=== PATIENT | female | born 1960 | race Caucasian/White ===

== ENCOUNTER 2016-10-08 09:15 | Emergency (ER) | payer OTHER ==
[~2016-10-08] VITALS: Ht 162.6 cm; Wt 98.9 kg
[~2016-10-08 09:15] MED LIST: CHOL100010 PO; CRS/10 PO; CYM/30 PO; LORA-741 PO; MULT-506 PO
[2016-10-08 09:22] VITALS: TEMP 36.7; Ht 162.6 cm; Wt 98.9 kg
[2016-10-08] MEDS ORDERED: DULO60CA44 PO (09:56)
[2016-10-08] MEDS ORDERED: BUSP15TA70 PO (09:56)
[2016-10-08] MEDS ORDERED: CHOL1000 PO (09:56)
[2016-10-08 10:03] VITALS: O2SAT 96
--- NOTE | 2016-10-08 10:09 | DIAGNOSTIC IMAGING REPORT ---
CHEST ONE VIEW PORTABLE CLINICAL HISTORY: Chest pain, dyspnea dyspnea COMPARISON STUDY: 09/10/2005 FINDINGS: The bones soft tissues and hemidiaphragms are normal. The cardiomediastinal silhouette is normal. The lungs are clear. The pulmonary vasculature is normal. IMPRESSION: Negative chest. Electronically signed by: George Valadez M.D. 10/08/2016 10:07 AM Dictated Date/Time: 10/08/2016 10:07 AM
[2016-10-08 10:10] LABS: BASO % 0.8 %; BASO ABS # 0.06 K/uL (0-0.2); COMPLETE YES; EOS % 5.2 %; HEMATOCRIT 40.9 % (37-47); IG% 0.3 %; LYMPH % 28.8 %; LYMPH ABS # 2.09 K/uL (1.2-3.4); MEAN CELL VOLUME 87.6 fL (80-100); MEAN CORPUSCULAR HEMOGLOBIN 27.8 pg (25-34); MEAN CORPUSCULAR HGB CONC 31.8 g/dl (32-36); MEAN PLATELET VOLUME 9.6 fL (7.4-10.4); MONO % 8.7 %; NEUT % 56.2 %; PLATELET COUNT 309 K/uL (130-400); RED BLOOD COUNT 4.67 M/uL (4.2-5.4); WHITE BLOOD COUNT 7.25 K/uL (4.8-10.8)
[2016-10-08 10:12] LABS: POINT OF CARE PRO-BNP < 15 pg/ml (0-900)
[2016-10-08 10:18] LABS: PROTHROMBIN TIME (PATIENT) 10.3 SECONDS (9.0-12.0)
[2016-10-08 10:31] LABS: BUN/CREATININE RATIO 19.8 (10-20); CALCIUM 8.9 mg/dl (8.5-10.1); CREATININE 0.91 mg/dl (0.60-1.20); POTASSIUM 3.9 mmol/L (3.5-5.1)
[2016-10-08 11:30] LABS: THYROID STIMULATING HORMONE 1.11 uIu/ml (0.300-4.500)
[2016-10-08] MEDS ORDERED: OPTIRAY 320 IV PRN (12:15)
--- NOTE | 2016-10-08 12:39 | DIAGNOSTIC IMAGING REPORT ---
CHEST CTA for PULMONARY ARTERIES CT DOSE: 497.30 mGycm HISTORY: Short of breath. TECHNIQUE: Multiaxial CT images of the chest were performed following the intravenous administration of contrast to evaluate the pulmonary arteries. Maximal intensity projection images were also obtained. COMPARISON STUDY: Chest CTA 04/04/2012. FINDINGS: There is a normal caliber thoracic aorta with no evidence for dissection. There is no evidence for pulmonary embolus. No pleural effusions. No pneumothorax. The liver and spleen are unremarkable. No mediastinal or hilar lymphadenopathy. The central airways are patent. A few bibasilar linear densities consistent with subsegmental atelectasis. No focal lung consolidations to suggest pneumonia. IMPRESSION: No evidence for pulmonary embolus. Electronically signed by: Tho Horton M.D. 10/08/2016 12:37 PM Dictated Date/Time: 10/08/2016 12:31 PM
--- NOTE | 2016-10-08 13:24 | EMERGENCY ROOM VISIT NOTE ---
History First contact with patient: 09:25 Chief Complaint: CHEST PAIN Stated Complaint: TIGHTNESS IN CHEST Nursing Triage Summary: Pt presents with substernal chest pain for a couple months, "it's to the point I am winded anytime I move. I do have anxiety attacks. I called my dr and she said to come here." History of Present Illness The patient is a 56 year old female who presents to the Emergency Room via private vehicle with complaints of "tightness in the chest". The patient states that she has had chest tightness for the past few weeks, and also feels easily winded perform activities. She rates the substernal chest pain as a 3/ 10. She states that it is worse with movement. She states that when talking or walking further distances she is short of breath. She also notes edema in the lower extremities at the end of the day. She does have a history of asthma. She does not personally have any heart history or lung history. She also has a history of anxiety and depression, Review of Systems A complete 10-point Review of Systems was discussed with the patient, with pertinent positives and negatives listed in the History of Present Illness. All remaining Review of Systems questions can be considered negative unless otherwise specified. Past Medical/Surgical History Anxiety, depression, high cholesterol Family History Mother from CHF Social History Smoking Status: Former Smoker Social History: Patient lives at home with and is currently employed. Current/Historical Medications Scheduled Buspirone Hcl (Buspar), 15 MG PO DAILY Cholecalciferol (Vitamin D3), 2,000 UNIT PO DAILY Duloxetine Hcl (Cymbalta), 60 MG PO DAILY Lorazepam (Ativan), 0.5 MG PO DAILY PRN Multivitamin (Multivitamin), 1 TAB PO DAILY Rosuvastatin Calcium (Crestor), 10 MG PO DAILY Allergies Coded Allergies: Isopropyl Alcohol (Verified Allergy, Unknown, RASH - PLEASE USE IODINE PER Tomi MORRISON, 10/08/16) Penicillins (Verified Allergy, Unknown, HIVES, 10/08/16) Dichloralphenazone (Verified Adverse Reaction, Mild, GI BLEED, 10/08/16) Isometheptene (Verified Adverse Reaction, Mild, GI BLEED, 10/08/16) Sulfa Antibiotics (Verified Adverse Reaction, Mild, gi upset, 10/08/16) Aspirin (Verified Adverse Reaction, Unknown, STOMACH UPSET, 10/08/16) Ibuprofen (Verified Adverse Reaction, Unknown, VAGINAL SPOTTING/GI BLEED, 10/08/16) Physical Exam Vital Signs Date Time Temp Pulse Resp B/P Pulse Ox O2 Delivery O2 Flow Rate FiO2 10/08/16 13:50 64 18 143/72 99 10/08/16 11:45 67 16 133/70 98 Room Air 10/08/16 10:56 70 16 137/76 96 Room Air 10/08/16 10:25 75 10/08/16 10:03 96 Room Air 10/08/16 10:03 73 16 129/66 97 Room Air 10/08/16 09:22 36.7 75 18 133/79 97 Room Air Physical Exam VITAL SIGNS - Vital signs and nursing notes were reviewed. Patient is afebrile , normotensive, non-tachycardic and is saturating well on room air 97%. GENERAL -56-year-old female appearing her stated age who is in no acute distress. Communicates well with provider and answers questions appropriately. SKIN - Without rashes. No petechial rashes. HEAD - NC/AT. EYES - PERRL with EOMI bilaterally. Sclera anicteric. Palpebral conjunctiva pink and moist with no injection noted. EARS - No deformities of external structures noted on gross examination bilaterally. No pain elicited with palpation of the tragus bilaterally. External auditory canals without discharge or otorrhea. Tympanic membranes pearly cuevas without retraction or bulging. No fluid or purulent material visualized behind the TM. Handle of malleus, umbo, cone of light, pars tensa/ flaccid all easily visualized. NOSE - Midline and without cyanosis. No epistaxis or purulent drainage noted. Septum midline without deviation or septal hematoma noted. MOUTH/OROPHARYNX - Without perioral cyanosis. Buccal mucosa pink and moist and without leukoplakia. Tongue midline with equal elevation of palate bilaterally. No tonsillar hypertrophy, erythema, or exudates noted. Fair dentition noted. NECK - Neck with FROM. Supple to palpation. No lymphadenopathy noted. No nuchal rigidity. LUNGS - Chest wall symmetric without accessory muscle use, intercostals retractions, or central cyanosis. Normal vesicular breath sounds CTA B/L. No wheezes, rales, or rhonchi appreciated. CARDIAC - RRR with S1/S2. No murmur, rubs, or gallops appreciated. There is reproducible pain with palpation of the sternal region. ABDOMEN - Abdominal contour without pulsations or visible masses. BS normoactive all four quadrants. No tenderness, palpable masses, hepatosplenomegaly, or ascites noted. EXTREMITIES - No clubbing or peripheral cyanosis. No pretibial edema present. + 5/5 strength noted in UE/LE bilaterally. NEUROLOGIC - Cranial nerves II through XII grossly intact. PSYCH - . Pt is very pleasant and interacts well with examiner. Medical Decision & Procedures ER Provider Diagnostic Interpretation: CHEST ONE VIEW PORTABLE CLINICAL HISTORY: Chest pain, dyspnea dyspnea COMPARISON STUDY: 09/10/2005 FINDINGS: The bones soft tissues and hemidiaphragms are normal. The cardiomediastinal silhouette is normal. The lungs are clear. The pulmonary vasculature is normal. IMPRESSION: Negative chest. Electronically signed by: George Valadez M.D. 10/08/2016 10:07 AM Dictated Date/Time: 10/08/2016 10:07 AM CHEST CTA for PULMONARY ARTERIES CT DOSE: 497.30 mGycm HISTORY: Short of breath. TECHNIQUE: Multiaxial CT images of the chest were performed following the intravenous administration of contrast to evaluate the pulmonary arteries. Maximal intensity projection images were also obtained. COMPARISON STUDY: Chest CTA 04/04/2012. FINDINGS: There is a normal caliber thoracic aorta with no evidence for dissection. There is no evidence for pulmonary embolus. No pleural effusions. No pneumothorax. The liver and spleen are unremarkable. No mediastinal or hilar lymphadenopathy. The central airways are patent. A few bibasilar linear densities consistent with subsegmental atelectasis. No focal lung consolidations to suggest pneumonia. IMPRESSION: No evidence for pulmonary embolus. Electronically signed by: Tho Horton M.D. 10/08/2016 12:37 PM Dictated Date/Time: 10/08/2016 12:31 PM Laboratory Results 10/08/16 09:45 Red Blood Count 4.67, Mean Corpuscular Volume 87.6, Mean Corpuscular Hemoglobin 27.8, Mean Corpuscular Hemoglobin Concent 31.8, Mean Platelet Volume 9.6, Neutrophils (%) (Auto) 56.2, Lymphocytes (%) (Auto) 28.8, Monocytes (%) (Auto) 8.7, Eosinophils (%) (Auto) 5.2, Basophils (%) (Auto) 0.8, Neutrophils # (Auto) 4.07, Lymphocytes # (Auto) 2.09, Monocytes # (Auto) 0.63, Eosinophils # (Auto) 0.38, Basophils # (Auto) 0.06 10/08/16 09:45 Test 10/08/16 09:45 10/08/16 09:52 10/08/16 11:45 White Blood Count 7.25 K/uL (4.8-10.8) Red Blood Count 4.67 M/uL (4.2-5.4) Hemoglobin 13.0 g/dL (12.0-16.0) Hematocrit 40.9 % (37-47) Mean Corpuscular Volume 87.6 fL (80-100) Mean Corpuscular Hemoglobin 27.8 pg (25-34) Mean Corpuscular Hemoglobin Concent 31.8 g/dl (32-36) Platelet Count 309 K/uL (130-400) Mean Platelet Volume 9.6 fL (7.4-10.4) Neutrophils (%) (Auto) 56.2 % Lymphocytes (%) (Auto) 28.8 % Monocytes (%) (Auto) 8.7 % Eosinophils (%) (Auto) 5.2 % Basophils (%) (Auto) 0.8 % Neutrophils # (Auto) 4.07 K/uL (1.4-6.5) Lymphocytes # (Auto) 2.09 K/uL (1.2-3.4) Monocytes # (Auto) 0.63 K/uL (0.11-0.59) Eosinophils # (Auto) 0.38 K/uL (0-0.5) Basophils # (Auto) 0.06 K/uL (0-0.2) RDW Standard Deviation 41.6 fL (36.4-46.3) RDW Coefficient of Variation 13.0 % (11.5-14.5) Immature Granulocyte % (Auto) 0.3 % Immature Granulocyte # (Auto) 0.02 K/uL (0.00-0.02) Prothrombin Time 10.3 SECONDS (9.0-12.0) Prothromb Time International Ratio 1.0 (0.9-1.1) Activated Partial Thromboplast Time 25.2 SECONDS (21.0-31.0) Partial Thromboplastin Ratio 1.0 D-Dimer 650 ug/L FEU (0-500) Anion Gap 5.0 mmol/L (3-11) Est Creatinine Clear Calc Drug Dose 78.0 ml/min Estimated GFR () 81.2 Estimated GFR (Non- 70.0 BUN/Creatinine Ratio 19.8 (10-20) Calcium Level 8.9 mg/dl (8.5-10.1) Total Bilirubin 0.4 mg/dl (0.2-1) Aspartate Amino Transf (AST/SGOT) 20 U/L (15-37) Alanine Aminotransferase (ALT/SGPT) 25 U/L (12-78) Alkaline Phosphatase 106 U/L (45-117) Total Protein 6.8 gm/dl (6.4-8.2) Albumin 3.4 gm/dl (3.4-5.0) Globulin 3.4 gm/dl (2.5-4.0) Albumin/Globulin Ratio 1.0 (0.9-2) Thyroid Stimulating Hormone (TSH) 1.110 uIu/ml (0.300-4.500) OS-Zbb-B-Type Natriuretic Peptide < 15 pg/ml (0-900) Bedside Troponin I 0.000 ng/ml (0-0.045) Medical Decision Patient was seen and evaluated as above. After obtaining a thorough history and physical examination, IV access was initiated and the above workup was performed. The patient noted worsening of her symptoms yesterday at work. Patient declined pain medication. CBC unremarkable for acute process. Coagulation studies were unremarkable. D-dimer elevated at 650. CMP reveals chloride elevation of 109, glucose at 100. Other was unremarkable. Troponin negative 2. EKG reveals normal sinus rhythm. Rate of 75 bpm. TSH normal limits. Chest x-ray unremarkable. Because the elevated d-dimer, CT for PE was obtained. PE study reveals no PE, and there was mild atelectasis. At this time I do not suspect IL, or PE at this time. Patient noted that she would prefer to follow up with her family doctor, and was also evaluated by my attending. At 1303, she noted that she would like to follow up with her family doctor and return home today. Our egg caser were able to establish an appointment for her tomorrow at 1245 with her family doctor's office. My attending did also that with the patient, she became teary as she started discussing her anxiety and depression. She denied any suicidal or homicidal ideation. She appears to be stable for discharge, and I do not believe that inpatient management is warranted. She was educated upon findings of today's visit, educated upon worrisome symptoms which to return, had questions prior to discharge and was discharged home in good condition. In evaluation treatment this patient following differential diagnoses were entertained: IL, PE, costochondritis, pneumothorax, among others. Impression Primary Impression: Chest wall pain Departure Information Dispostion Home / Self-Care Condition GOOD Referrals Ashkan Rebolledo III, M.D. (PCP) Patient Instructions My [facility] Additional Instructions You were seen in the emergency department for chest pain. As we discussed at this time, it is unlikely from emergency department standpoint your expressing a heart attack or blood clot . However, it is recommended you follow-up with her family doctor, for that reason our major case detective has established an appointment for you tomorrow at 1245. Please refer to the paper your provided regarding this. If you develop any additional symptoms, please return to the emergency department. Thank you for your time.
[2016-10-08 13:50] VITALS: BP 143/72; PULSE 64; O2SAT 99
--- NOTE | 2016-10-08 16:06 | EMERGENCY ROOM VISIT NOTE ---
ED Visit Note First contact with patient: 09:25 I have personally evaluated this patient examined her and reviewed the pertinent labs and data. I have discussed the case with the physician talent acquisition assistant and agree with the plan. 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 She is very teary-eyed when I talked her about things. She has a lot of stress at home and at work. She has a history of anxiety. She denies that she has any suicidal or homicidal ideations. 2 EKGs were obtained and they did not show any ischemic changes. Her troponin is not elevated. Chest CT was unremarkable. I do think she needs further follow-up and possible further testing. She did have a stress test a couple years ago after she was having chest pain. It was negative at that time. I talked to her at length. She desires to go home rather than be admitted and I think that this is reasonable. There is definitely an anxiety component but there could also be underlying cardiac component and will needs close follow-up . I recommended she get follow-up tomorrow with her doctor to arrange further treatment and evaluation and possible further cardiac workup. She was encouraged to return if she has any new problems or concerns or worsening symptoms
[2017-03-27] MEDS ORDERED: GUAI1TAB68 PO (13:41)
[2017-03-27] MEDS ORDERED: PRD20 PO (13:41)
[2017-03-27] MEDS ORDERED: WLLXL300 PO (13:41)
== END 2016-10-08 13:50 | disposition home or self-care (01) ==
LOC: C.EDB 09:17 → C.EDA 13:50
DX: R07.89 Other chest pain (principal); R06.02 Shortness of breath; R60.9 Edema, unspecified; J45.909 Unspecified asthma, uncomplicated; F41.9 Anxiety disorder, unspecified; F32.9 Major depressive disorder, single episode, unspecified; E78.00 Pure hypercholesterolemia, unspecified; Z79.899 Other long term (current) drug therapy; Z87.891 Personal history of nicotine dependence; Z82.49 Family history of ischemic heart disease and other diseases of the circulatory system

== ENCOUNTER 2017-03-24 10:49 | Observation (INO) | payer OTHER ==
[~2017-03-24] VITALS: Ht 162.6 cm; Wt 99.2 kg
[~2017-03-24 10:49] MED LIST changes: +BUSP15TA70 PO; +CHOL1000 PO; -CHOL100010 PO; -CYM/30 PO; +DULO60CA44 PO
[2017-03-24] MEDS ORDERED: BUPR-83 PO (11:42)
[2017-03-24] MEDS ORDERED: ALBUT/IPRATROP 3MG/0.5MG NEB 3 ML VIAL INH STA (11:57)
[2017-03-24 12:09] LABS: BASO % 0.5 %; BASO ABS # 0.05 K/uL (0-0.2); COMPLETE YES; EOS % 3.1 %; HEMATOCRIT 41.3 % (37-47); IG% 0.3 %; LYMPH % 28.4 %; LYMPH ABS # 2.81 K/uL (1.2-3.4); MEAN CORPUSCULAR HEMOGLOBIN 28.2 pg (25-34); MEAN CORPUSCULAR HGB CONC 33.2 g/dl (32-36); MEAN PLATELET VOLUME 9.5 fL (7.4-10.4); MONO % 8.3 %; NEUT % 59.4 %; PLATELET COUNT 328 K/uL (130-400); RED BLOOD COUNT 4.86 M/uL (4.2-5.4); WHITE BLOOD COUNT 9.88 K/uL (4.8-10.8)
--- NOTE | 2017-03-24 12:11 | EMERGENCY ROOM VISIT NOTE ---
History Report prepared by Bernice: Tanisha Beth Under the Supervision of: Dr. Keith Wade M.D. First contact with patient: 11:59 Chief Complaint: RESPIRATORY PROBLEMS Stated Complaint: VOMITING, COUGH, BREATHING DIFFICULTY, DIZZY Nursing Triage Summary: She is having such dizzy spells that she can hardly walk on her own. Difficulty breathing. Snoring like a chainsaw. Losing her voice". History of Present Illness The patient is a 57 year old female who presents to the Emergency Room with complaints of persistent respiratory problems that began several days ago. She currently rates her discomfort as a 4/10 in severity. The patient reports a history of asthma, noting she has used her inhalers without any relief. She states that she also has a history of pneumonia. The patient's states that the patient has been experiencing dizzy spells all morning. He states that the patient has had difficulty ambulating secondary to the dizziness. The patient states that for a few days she has been experiencing chest pain and headaches. She states that she was just started on Wellbutrin two weeks ago. The patient states that she has experienced leg pain. She reports nausea and vomiting today, but denies any abdominal pain. The patient denies any history of gallbladder problems or appendicitis. She denies any recent travel or history of blood clots. The patient reports a cough and a sore throat. She denies any personal history of heart disease, but reports a family history of heart disease. The patient reports weakness as well. She denies getting headaches often. Source of History: patient, spouse/significant other () Onset: several days ago Position: other (global) Symptom Intensity: 4/10 Quality: other (respiratory problems) Timing: other (persistent) Associated Symptoms: + headache, + sorethroat, + cough, + chest pain, + nausea, + vomiting, + weakness, No abdominal pain Note: Associated Symptoms: leg pain Review of Systems See HPI for pertinent positives & negatives. A total of 10 systems reviewed and were otherwise negative. Past Medical & Surgical Medical Problems: (1) Anxiety (2) Asthma (3) Depression (4) GERD (gastroesophageal reflux disease) (5) HLD (hyperlipidemia) Family History FHx: heart disease Social History Smoking Status: Never Smoker Marital Status: Housing Status: lives with significant other Occupation Status: employed Current/Historical Medications Scheduled Atorvastatin (Lipitor), 1 TAB PO DAILY Bupropion (Wellbutrin), 100 MG PO BID Buspirone Hcl (Buspar), 15 MG PO DAILY Cholecalciferol (Vitamin D3), 2,000 UNIT PO DAILY Lorazepam (Ativan), 1 MG PO BID Multivitamin (Multivitamin), 1 TAB PO DAILY Omeprazole (Prilosec), 20 MG PO DAILY Ranitidine (Zantac), 150 MG PO BID Scheduled PRN Albuterol (Ventolin Hfa), 2 PUFF PO for SOB/Wheezing Trazodone Hcl (Trazodone), 50 MG PO HS PRN for Insomnia Allergies Coded Allergies: Isopropyl Alcohol (Verified Allergy, Unknown, RASH - PLEASE USE IODINE PER Tomi MORRISON, 03/24/17) Penicillins (Verified Allergy, Unknown, HIVES, 03/24/17) Dichloralphenazone (Verified Adverse Reaction, Mild, GI BLEED, 03/24/17) Isometheptene (Verified Adverse Reaction, Mild, GI BLEED, 03/24/17) Sulfa Antibiotics (Verified Adverse Reaction, Mild, gi upset, 03/24/17) Aspirin (Verified Adverse Reaction, Unknown, STOMACH UPSET, 03/24/17) Ibuprofen (Verified Adverse Reaction, Unknown, VAGINAL SPOTTING/GI BLEED, 03/24/17) Physical Exam Vital Signs Date Time Temp Pulse Resp B/P (MAP) Pulse Ox O2 Delivery O2 Flow Rate FiO2 03/24/17 13:55 109/70 03/24/17 12:26 75 03/24/17 12:10 99 Room Air 03/24/17 11:13 36.7 72 20 138/83 98 Room Air Physical Exam GENERAL: Patient is anxious appearing in moderate distress. HEENT: No acute trauma, normocephalic atraumatic, mucous membranes moist, no nasal congestion, no scleral icterus. NECK: No stridor, no adenopathy, no meningismus, trachea is midline. LUNGS: Dyspneic and tachypneic. HEART: Regular rate and rhythm. No murmurs, rubs, gallops appreciated. ABDOMEN: Soft, nontender, bowel sounds positive, no masses appreciated, no peritonitis. BACK: No midline tenderness, no CVA tenderness EXTREMITIES: Tenderness to palpation of bilateral legs. Normal motion all extremities, no cyanosis, no edema. NEUROLOGIC: Alert and oriented, no acute motor or sensory deficits, no focal weakness, cranial nerves grossly intact. SKIN: No rash, no jaundice, no diaphoresis. Medical Decision & Procedures ER Provider Diagnostic Interpretation: Radiology results and stated below per my review and radiologist interpretation: CHEST ONE VIEW PORTABLE CLINICAL HISTORY: COUGH dyspnea COMPARISON STUDY: 10/08/2016 FINDINGS: The bones soft tissues and hemidiaphragms are normal. The cardiomediastinal silhouette is normal. The lungs are clear. The pulmonary vasculature is normal. IMPRESSION: Negative chest. The above report was generated using voice recognition software. It may contain grammatical, syntax or spelling errors. Electronically signed by: George Valadez M.D. 03/24/2017 12:32 PM Dictated Date/Time: 03/24/2017 12:32 PM The status of this report is Signed. Draft = Not yet reviewed or approved by Radiologist. Signed = Reviewed and approved by Radiologist. HEAD WITHOUT CONTRAST (CT) CLINICAL HISTORY: 57 years-old Female with new onset headache. Acute headache with dizziness, shortness of breath and chest pain TECHNIQUE: Multiple axial CT images of the head were obtained without contrast. A dose lowering technique was utilized adhering to the principles of ALARA. COMPARISON: CT head 08/14/2007. FINDINGS: No acute intracranial hemorrhage, midline shift, mass, large territorial ischemia or abnormal extra-axial collection. The calvarium is intact. The paranasal sinuses, mastoid air cells, and middle ear cavities are clear. IMPRESSION: No acute intracranial abnormality. The above report was generated using voice recognition software. It may contain grammatical, syntax or spelling errors. Electronically signed by: Samuel Bailey M.D. 03/24/2017 1:43 PM Dictated Date/Time: 03/24/2017 1:41 PM (CHEST FOR PE) ANGIO WITH CT DOSE: 1214.06 mGy.cm HISTORY: 57 years-old Female presents with acute headache, dizziness, shortness of breath and chest pain with cough TECHNIQUE: Multiple CTA images of the chest were obtained after the intravenous administration of 87 ml Optiray 320. Coronal and sagittal MIPS were obtained from the axial data set and were submitted for review. A dose lowering technique was utilized adhering to the principles of ALARA. COMPARISON: CTA of the chest 10/08/2016 FINDINGS: CTA: There is adequate opacification of the pulmonary arteries to the level of the subsegmental branches without convincing evidence of acute pulmonary embolism. Evaluation of the pulmonary arterial tree however is somewhat limited secondary to respiratory motion. The thoracic aorta is normal in both course and caliber without aneurysm or dissection. Heart size is normal. CT CHEST: Thyroid is homogeneous. No pathologic adenopathy of the chest identified. No pneumothorax, pleural effusion or focal airspace consolidation. Minimal dependent bibasilar atelectasis. Subcentimeter calcified granuloma of the right lower lobe. No suspicious pulmonary nodules or masses identified. Central airways are patent. No acute abnormality of the imaged upper abdomen. Soft tissues are unremarkable. Bones appear intact. There are moderate degenerative changes of the right AC joint. Multilevel spondylitic changes of the spine.. IMPRESSION: No acute intrathoracic abnormality identified, specifically no acute aortic pathology or evidence of pulmonary thromboembolic disease. The above report was generated using voice recognition software. It may contain grammatical, syntax or spelling errors. Electronically signed by: Samuel Bailey M.D. 03/24/2017 1:53 PM Dictated Date/Time: 03/24/2017 1:47 PM Laboratory Results 03/24/17 11:50 Red Blood Count 4.86, Mean Corpuscular Volume 85.0, Mean Corpuscular Hemoglobin 28.2, Mean Corpuscular Hemoglobin Concent 33.2, Mean Platelet Volume 9.5, Neutrophils (%) (Auto) 59.4, Lymphocytes (%) (Auto) 28.4, Monocytes (%) (Auto) 8.3, Eosinophils (%) (Auto) 3.1, Basophils (%) (Auto) 0.5, Neutrophils # (Auto) 5.86, Lymphocytes # (Auto) 2.81, Monocytes # (Auto) 0.82, Eosinophils # (Auto) 0.31, Basophils # (Auto) 0.05 03/24/17 11:50 Test 03/24/17 11:50 03/24/17 12:13 White Blood Count 9.88 K/uL (4.8-10.8) Red Blood Count 4.86 M/uL (4.2-5.4) Hemoglobin 13.7 g/dL (12.0-16.0) Hematocrit 41.3 % (37-47) Mean Corpuscular Volume 85.0 fL (80-100) Mean Corpuscular Hemoglobin 28.2 pg (25-34) Mean Corpuscular Hemoglobin Concent 33.2 g/dl (32-36) Platelet Count 328 K/uL (130-400) Mean Platelet Volume 9.5 fL (7.4-10.4) Neutrophils (%) (Auto) 59.4 % Lymphocytes (%) (Auto) 28.4 % Monocytes (%) (Auto) 8.3 % Eosinophils (%) (Auto) 3.1 % Basophils (%) (Auto) 0.5 % Neutrophils # (Auto) 5.86 K/uL (1.4-6.5) Lymphocytes # (Auto) 2.81 K/uL (1.2-3.4) Monocytes # (Auto) 0.82 K/uL (0.11-0.59) Eosinophils # (Auto) 0.31 K/uL (0-0.5) Basophils # (Auto) 0.05 K/uL (0-0.2) RDW Standard Deviation 41.4 fL (36.4-46.3) RDW Coefficient of Variation 13.4 % (11.5-14.5) Immature Granulocyte % (Auto) 0.3 % Immature Granulocyte # (Auto) 0.03 K/uL (0.00-0.02) Prothrombin Time 9.9 SECONDS (9.0-12.0) Prothromb Time International Ratio 0.9 (0.9-1.1) Activated Partial Thromboplast Time 25.0 SECONDS (21.0-31.0) Partial Thromboplastin Ratio 1.0 Anion Gap 6.0 mmol/L (3-11) Estimated GFR () 80.6 Estimated GFR (Non- 69.5 BUN/Creatinine Ratio 14.1 (10-20) Calcium Level 9.3 mg/dl (8.5-10.1) Magnesium Level 2.2 mg/dl (1.8-2.4) Total Bilirubin 0.3 mg/dl (0.2-1) Aspartate Amino Transf (AST/SGOT) 20 U/L (15-37) Alanine Aminotransferase (ALT/SGPT) 24 U/L (12-78) Alkaline Phosphatase 127 U/L (45-117) Total Protein 7.3 gm/dl (6.4-8.2) Albumin 3.6 gm/dl (3.4-5.0) Globulin 3.7 gm/dl (2.5-4.0) Albumin/Globulin Ratio 1.0 (0.9-2) Bedside Troponin I < 0.030 ng/ml (0-0.045) Laboratory results as reviewed by me. Medications Administered Medications (Trade) Dose Ordered Sig/Anneliese Route Start Time Stop Time Status Last Admin Dose Admin Albuterol/ Ipratropium (Duoneb) 3 ml NOW STAT INH 03/24/17 11:57 03/24/17 12:01 DC 03/24/17 12:07 3 ML ECG Indication: chest pain, SOB/dyspnea Rate (beats per minute): 77 Rhythm: normal sinus Findings: no acute ischemic change, no ectopy ED Course 1157: Ordered DuoNeb 3 ml INH. 1200: The patient was evaluated in room C11B. A complete history and physical exam was performed. 1410: I reevaluated the patient and she is resting comfortably. I discussed the exam findings with her and I discussed the treatment plan. She verbalized complete understanding and agreement. She does not feel comfortable going home. She will be evaluated for further treatment. 1417: I discussed the patient's case with Angela Parr. He is going to evaluate the patient for further treatment. Medical Decision Differential: Infectious, Reactive Airway Disease, Pneumonia, Pneumothorax, COPD , CHF, ACS, Pulmonary Embolism, MSK, GI, Dissection, amongst other etiologies entertained. 57 yr old female with acute onset substernal chest pressure, shortness of breath , headache and dizziness. History of asthma thus given neb for SHOB. With multiple complaints and exam felt CTA indicated without dimer, fortunately CTA negative. CT head negative (done due to acute headache). She does not have evidence of sepsis, meningitis, nor does she have neuro deficits. She has normal EKG and negative Trop thus ACS seems unlikely but with age and risks feel she will need cardiac rule out. States allergy to aspirin and already with headache would avoid nitro, especially given improvement with breathing. BP is stable. No evidence of dissection nor CHF. Hospitalist in to evaluate further. Medication Reconcilliation Current Medication List: was personally reviewed by me Consults Time Called: 1413 Consulting Physician: Angela Parr Returned Call: [phone] I discussed the patient's case with Angela Parr. He is going to evaluate the patient for further treatment. Impression Primary Impression: Substernal chest pain Additional Impressions: Shortness of breath Dizziness Scribe Attestation The scribe's documentation has been prepared under my direction and personally reviewed by me in its entirety. I confirm that the note above accurately reflects all work, treatment, procedures, and medical decision making performed by me. Departure Information Dispostion Being Evaluated By Hospitalist Referrals Ashkan Rebolledo III, M.D. (PCP) Problem Qualifiers
[2017-03-24] MEDS ORDERED: OPTIRAY 320 IV PRN (12:15)
[2017-03-24 12:20] LABS: INR 0.9 (0.9-1.1); PROTHROMBIN TIME (PATIENT) 9.9 SECONDS (9.0-12.0)
[2017-03-24 12:28] LABS: ALT/SGPT 24 U/L (12-78); BLOOD UREA NITROGEN 13 mg/dl (7-18); BUN/CREATININE RATIO 14.1 (10-20); CALCIUM 9.3 mg/dl (8.5-10.1); CARBON DIOXIDE 28 mmol/L (21-32); CHLORIDE 109 mmol/L (98-107); CREATININE 0.91 mg/dl (0.60-1.20); GLUCOSE 85 mg/dl (70-99); MAGNESIUM 2.2 mg/dl (1.8-2.4); POTASSIUM 3.8 mmol/L (3.5-5.1); SODIUM 143 mmol/L (136-145)
[2017-03-24 12:31] LABS: ALKALINE PHOSPHATASE 127 U/L (45-117); AST/SGOT 20 U/L (15-37)
--- NOTE | 2017-03-24 12:33 | DIAGNOSTIC IMAGING REPORT ---
CHEST ONE VIEW PORTABLE CLINICAL HISTORY: COUGH dyspnea COMPARISON STUDY: 10/08/2016 FINDINGS: The bones soft tissues and hemidiaphragms are normal. The cardiomediastinal silhouette is normal. The lungs are clear. The pulmonary vasculature is normal. IMPRESSION: Negative chest. The above report was generated using voice recognition software. It may contain grammatical, syntax or spelling errors. Electronically signed by: George Valadez M.D. 03/24/2017 12:32 PM Dictated Date/Time: 03/24/2017 12:32 PM
--- NOTE | 2017-03-24 13:45 | DIAGNOSTIC IMAGING REPORT ---
HEAD WITHOUT CONTRAST (CT) CLINICAL HISTORY: 57 years-old Female with new onset headache. Acute headache with dizziness, shortness of breath and chest pain TECHNIQUE: Multiple axial CT images of the head were obtained without contrast. A dose lowering technique was utilized adhering to the principles of ALARA. COMPARISON: CT head 08/14/2007. FINDINGS: No acute intracranial hemorrhage, midline shift, mass, large territorial ischemia or abnormal extra-axial collection. The calvarium is intact. The paranasal sinuses, mastoid air cells, and middle ear cavities are clear. IMPRESSION: No acute intracranial abnormality. The above report was generated using voice recognition software. It may contain grammatical, syntax or spelling errors. Electronically signed by: Samuel Bailey M.D. 03/24/2017 1:43 PM Dictated Date/Time: 03/24/2017 1:41 PM
--- NOTE | 2017-03-24 13:55 | DIAGNOSTIC IMAGING REPORT ---
(CHEST FOR PE) ANGIO WITH CT DOSE: 1214.06 mGy.cm HISTORY: 57 years-old Female presents with acute headache, dizziness, shortness of breath and chest pain with cough TECHNIQUE: Multiple CTA images of the chest were obtained after the intravenous administration of 87 ml Optiray 320. Coronal and sagittal MIPS were obtained from the axial data set and were submitted for review. A dose lowering technique was utilized adhering to the principles of ALARA. COMPARISON: CTA of the chest 10/08/2016 FINDINGS: CTA: There is adequate opacification of the pulmonary arteries to the level of the subsegmental branches without convincing evidence of acute pulmonary embolism. Evaluation of the pulmonary arterial tree however is somewhat limited secondary to respiratory motion. The thoracic aorta is normal in both course and caliber without aneurysm or dissection. Heart size is normal. CT CHEST: Thyroid is homogeneous. No pathologic adenopathy of the chest identified. No pneumothorax, pleural effusion or focal airspace consolidation. Minimal dependent bibasilar atelectasis. Subcentimeter calcified granuloma of the right lower lobe. No suspicious pulmonary nodules or masses identified. Central airways are patent. No acute abnormality of the imaged upper abdomen. Soft tissues are unremarkable. Bones appear intact. There are moderate degenerative changes of the right AC joint. Multilevel spondylitic changes of the spine.. IMPRESSION: No acute intrathoracic abnormality identified, specifically no acute aortic pathology or evidence of pulmonary thromboembolic disease. The above report was generated using voice recognition software. It may contain grammatical, syntax or spelling errors. Electronically signed by: Samuel Bailey M.D. 03/24/2017 1:53 PM Dictated Date/Time: 03/24/2017 1:47 PM
[2017-03-24] MEDS ORDERED: ONDANSETRON INJ 2 MG/ML 2 ML VIAL IV PRN (15:15)
[2017-03-24] MEDS ORDERED: NITROGLYCERIN 0.4 MG SL PER TAB CHARGE SL PRN (15:15)
[2017-03-24] MEDS ORDERED: PATIENT'S HEIGHT AND/OR WEIGHT NEEDED SCH (15:30)
--- NOTE | 2017-03-24 15:44 | History and Physical ---
History & Physical Date & Time of Service: Mar 24, 2017 at 15:32 Chief Complaint: Vomiting, Cough, Breathing Difficulty, Dizzy Primary Care Physician: Ashkan Rebolledo III, M.D. History of Present Illness Source: patient, spouse, clinic records This is a 57yo F with a PMH of asthma, anxiety, depression, GERD who presents with worsening SOB over the past week. Patient has a history of asthma that is controlled with her albuterol inhaler PRN. However, for the past week she has become dyspneic when talking as well as with any type of movement despite use of her inhaler. Associated symptoms include central chest tightness, a dry cough , chills and a dull frontal headache. Started to lose her voice yesterday. + sick contacts (son who lives at home). Also endorses worsening acid reflux over the past few days as well as nausea and an episode of dry heaving earlier today. Has been working despite not feeling well until today, when she felt lightheaded and "about to pass out". Denies any syncopal events. Called to bring her to ER for further evaluation. Patient denies a history of heart disease but has experienced this chest tightness before during times of elevated anxiety. Had a stress echo performed last year which was negative. States that anxiety and depression have been worse over the past few months. Has been stressed with her son's chronic illness and repetitive need for hospitalization. Also has been adjusting to a new work schedule. Complains of decreased appetite, insomnia, anhedonia and suicidal ideation with a plan (overdose on medication at home). Denies any previous suicidal attempts. PCP has recently stopped Cymbalta and started Wellbutrin 2 weeks ago. Encouraged her to follow-up with a psychiatrist and therapist for further medication management but patient has not yet set up care. Past Medical/Surgical History Medical Problems: (1) Anxiety Status: Chronic (2) Asthma Status: Chronic (3) Depression Status: Chronic (4) GERD (gastroesophageal reflux disease) Status: Chronic (5) HLD (hyperlipidemia) Status: Chronic Family History FHx: heart disease Social History Smoking Status: Never Smoker Marital Status: Housing status: lives with family Occupational Status: employed Immunizations History of Influenza Vaccine: No History of Tetanus Vaccine?: Yes History of Pneumococcal: No History of Hepatitis B Vaccine: No Multi-Drug Resistant Organisms History of MDRO: No Allergies Coded Allergies: Isopropyl Alcohol (Verified Allergy, Unknown, RASH - PLEASE USE IODINE PER Tomi MORRISON, 03/24/17) Penicillins (Verified Allergy, Unknown, HIVES, 03/24/17) Dichloralphenazone (Verified Adverse Reaction, Mild, GI BLEED, 03/24/17) Isometheptene (Verified Adverse Reaction, Mild, GI BLEED, 03/24/17) Sulfa Antibiotics (Verified Adverse Reaction, Mild, gi upset, 03/24/17) Aspirin (Verified Adverse Reaction, Unknown, STOMACH UPSET, 03/24/17) Ibuprofen (Verified Adverse Reaction, Unknown, VAGINAL SPOTTING/GI BLEED, 03/24/17) Home Medications Scheduled Atorvastatin (Lipitor), 1 TAB PO DAILY Bupropion (Wellbutrin), 100 MG PO BID Buspirone Hcl (Buspar), 15 MG PO DAILY Cholecalciferol (Vitamin D3), 2,000 UNIT PO DAILY Lorazepam (Ativan), 1 MG PO BID Multivitamin (Multivitamin), 1 TAB PO DAILY Omeprazole (Prilosec), 20 MG PO DAILY Ranitidine (Zantac), 150 MG PO BID Scheduled PRN Albuterol (Ventolin Hfa), 2 PUFF PO for SOB/Wheezing Trazodone Hcl (Trazodone), 50 MG PO HS PRN for Insomnia Review of Systems Ten systems reviewed and negative except as noted in the HPI. Physical Exam Vital Signs Date Time Temp Pulse Resp B/P (MAP) Pulse Ox O2 Delivery O2 Flow Rate FiO2 03/24/17 13:55 109/70 03/24/17 12:26 75 03/24/17 12:10 99 Room Air 03/24/17 11:13 36.7 72 20 138/83 98 Room Air General Appearance: + mild distress Head: normocephalic, atraumatic, + pertinent finding (No TTP of sinuses ) Eyes: normal inspection, PERRL, sclerae normal (Conjunctiva normal ) ENT: normal ENT inspection, hearing grossly normal, pharynx normal, + muffled/ hoarse voice (Hoarse voice, whispered speech) Neck: supple, thyroid normal, trachea midline Respiratory/Chest: chest non-tender, no respiratory distress, no accessory muscle use, + wheezing (expiratory wheezing) Cardiovascular: regular rate, rhythm, no murmur, normal peripheral pulses Abdomen/GI: normal bowel sounds, non tender, soft, no organomegaly Extremities/Musculoskelatal: normal inspection, no calf tenderness, no pedal edema, non-tender Neurologic/Psych: no motor/sensory deficits, alert, oriented x 3, + depressed affect (Crying intermittently during interview ) Skin: normal color, warm/dry, no rash Diagnostics Laboratory Results Results Past 24 Hours Test 03/24/17 11:50 03/24/17 12:13 Range/Units White Blood Count 9.88 4.8-10.8 K/uL Red Blood Count 4.86 4.2-5.4 M/uL Hemoglobin 13.7 12.0-16.0 g/dL Hematocrit 41.3 37-47 % Mean Corpuscular Volume 85.0 80-100 fL Mean Corpuscular Hemoglobin 28.2 25-34 pg Mean Corpuscular Hemoglobin Concent 33.2 32-36 g/dl Platelet Count 328 130-400 K/uL Mean Platelet Volume 9.5 7.4-10.4 fL Neutrophils (%) (Auto) 59.4 % Lymphocytes (%) (Auto) 28.4 % Monocytes (%) (Auto) 8.3 % Eosinophils (%) (Auto) 3.1 % Basophils (%) (Auto) 0.5 % Neutrophils # (Auto) 5.86 1.4-6.5 K/uL Lymphocytes # (Auto) 2.81 1.2-3.4 K/uL Monocytes # (Auto) 0.82 0.11-0.59 K/uL Eosinophils # (Auto) 0.31 0-0.5 K/uL Basophils # (Auto) 0.05 0-0.2 K/uL RDW Standard Deviation 41.4 36.4-46.3 fL RDW Coefficient of Variation 13.4 11.5-14.5 % Immature Granulocyte % (Auto) 0.3 % Immature Granulocyte # (Auto) 0.03 0.00-0.02 K/uL Prothrombin Time 9.9 9.0-12.0 SECONDS Prothromb Time International Ratio 0.9 0.9-1.1 Activated Partial Thromboplast Time 25.0 21.0-31.0 SECONDS Partial Thromboplastin Ratio 1.0 Sodium Level 143 136-145 mmol/L Potassium Level 3.8 3.5-5.1 mmol/L Chloride Level 109 98-107 mmol/L Carbon Dioxide Level 28 21-32 mmol/L Anion Gap 6.0 3-11 mmol/L Blood Urea Nitrogen 13 7-18 mg/dl Creatinine 0.91 0.60-1.20 mg/dl Estimated GFR () 80.6 Estimated GFR (Non- 69.5 BUN/Creatinine Ratio 14.1 10-20 Random Glucose 85 70-99 mg/dl Calcium Level 9.3 8.5-10.1 mg/dl Magnesium Level 2.2 1.8-2.4 mg/dl Total Bilirubin 0.3 0.2-1 mg/dl Aspartate Amino Transf (AST/SGOT) 20 15-37 U/L Alanine Aminotransferase (ALT/SGPT) 24 12-78 U/L Alkaline Phosphatase 127 45-117 U/L Total Protein 7.3 6.4-8.2 gm/dl Albumin 3.6 3.4-5.0 gm/dl Globulin 3.7 2.5-4.0 gm/dl Albumin/Globulin Ratio 1.0 0.9-2 Bedside Troponin I < 0.030 0-0.045 ng/ml Diagnostic Radiology Chest/thorax CTA: IMPRESSION: No acute intrathoracic abnormality identified, specifically no acute aortic pathology or evidence of pulmonary thromboembolic disease. Head CT: IMPRESSION: No acute intracranial abnormality. CXR normal Normal EKG, No change from prior EKG Impression Assessment and Plan This is a 57yo F with a PMH of asthma, anxiety, depression, GERD who presents with worsening SOB over the past week. CP rule out: -R/o ACS; risk factors include HLD, + family history -Likely pleuritic pain 2/2 asthma as well as an anxiety component -Initial troponin negative. Will cycle enzymes for completeness -H/o stress echo in 2016 negative for inducible ischemia -EKG- NSR, CXR-no acute process, CTA -no PE -Repeat EKG in am -Will consider a cardiac consult, echo if CP continues Asthma exacerbation: -Has been taking inhaler without relief -Likely precipitated by viral illness -Flu PCR pending -Afebrile, no leukocytosis -Duonebs Q4h -Prednisone 40mg PO daily Depression: -Insomnia, decreased appetite, anhedonia -Endorses SI, plan to overdose on home medications -Denies a previous suicidal attempt -Recently switched from Cymbalta to Wellbutrin by PCP -Psych consulted for further recommendations Anxiety: -Increased lately -Continue Buspar, ativan PRN -Psych consult pending Lightheadedness: -Worse with positional change -CT head without acute abnormalities -Likely vasovagal, anxiety induced -Encouraged PO intake of fluids -Normal EKG. Repeat EKG in AM -Orthostatic vitals pending GERD: -Continue omeprazole, ranitidine DVT Ppx: Lovenox Code status: FULL PCP: Kesha Dispo: Plan to return home once medically stable Patient seen in collaboration with Dr. Lujan. Agree with above H and p. Briefly 57f presents with sob and cough for few days. Also lost voice few days ago. Debies nocturnal cogh/. Laso having chest tightness. Says had chills but denies fevers. No nausea or abdominal pain. No sweeling of the legs.Currentlty resting comfortably and hemodynamically stable. p/e Ge not in distress Cvs s1 and s2 heard no murmurs Rs cta b/l mild b/l wheezing no crackles Abd benign account underwriter non focAL Ext No erythema A/P Asthma ex nebs atc and prn po prednisone monitor Anxiety/depression/suicidal ideation continue home meds psychiatry consult Chest tightness mostly from asthma and anxiety follow serial ce and repeat echo GERd continue home meds Level of Care Telemetry Resuscitation Status FULL RESUSCITATION VTE Prophylaxis VTE Risk Assessment Done? Y/N: Yes Risk Level: Moderate Given or contraindicated: Enoxaparin (Lovenox)SQ
[2017-03-24] MEDS ORDERED: OMEP20CA9 PO (15:50)
[2017-03-24] MEDS ORDERED: TRAZ50TA35 PO (15:50)
[2017-03-24] MEDS ORDERED: PRVHFAIN PO (15:50)
[2017-03-24] MEDS ORDERED: ATOR-24 PO (15:50)
[2017-03-24] MEDS ORDERED: ATV/1 PO (15:50)
[2017-03-24] MEDS ORDERED: ZNTT/150 PO (15:50)
[2017-03-24] MEDS: ALBUT/IPRATROP 3MG/0.5MG NEB 3 ML VIAL INH SCH ×2 (16:00→18:55)
[2017-03-24 16:02] VITALS: Ht 162.6 cm; Wt 99.2 kg
[2017-03-24] MEDS ORDERED: TRAZODONE HCL 50 MG TAB PO PRN (16:15)
[2017-03-24] MEDS ORDERED: ALBUTEROL HFA 8 GM INHALER INH PRN (16:15)
[2017-03-24] MEDS ORDERED: INFLUENZA VACCINE HIGH DOSE 65+ 0.5 ML SYR IM. ONE (16:30)
[2017-03-24] MEDS ORDERED: PNEUMOCOCCAL POLYSACCHARIDES 25 MCG/0.5 ML VIAL/SYR IM. ONE (16:30)
[2017-03-24] MEDS ORDERED: IV FLUIDS COMPLETED PRN ×3 (16:30)
[2017-03-24] MEDS ORDERED: INFLUENZA ADMINISTRATION CHARGE ONE (16:30)
[2017-03-24] MEDS ORDERED: PNEUMOCOCCAL ADMINISTRATION CHARGE ONE (16:30)
[2017-03-24 17:00] VITALS: O2SAT 98
[2017-03-24 17:08] VITALS: BP 133/62; PULSE 80; TEMP 36.7; O2SAT 94
[2017-03-24 18:57] VITALS: PULSE 74; O2SAT 97
[2017-03-24] MEDS: ENOXAPARIN 40 MG/0.4 ML SYR SC SCH (19:35)
[2017-03-24 19:51] VITALS: BP 123/65; PULSE 82; TEMP 37; O2SAT 96
[2017-03-24 20:00] VITALS: O2SAT 98
[2017-03-24] MEDS: LORAZEPAM 1 MG TAB PO SCH (20:36)
[2017-03-24] MEDS: BuPROPion SR 100 MG TABCR PO SCH (20:37)
[2017-03-24] MEDS: RANITIDINE HCL 150 MG TAB PO SCH (20:37)
[2017-03-24 21:33] LABS: INFLUENZA A PCR Neg for Influ A (NEG); INFLUENZA B PCR Neg for Influ B (NEG)
[2017-03-25] VITALS (10 sets, daily range): BP systolic 104–133; BP diastolic 57–82; PULSE 74–110; TEMP 36.7–36.8; O2SAT 92–97
[2017-03-25 05:46] LABS: HEMATOCRIT 42.3 % (37-47); MEAN CELL VOLUME 85.3 fL (80-100); MEAN CORPUSCULAR HEMOGLOBIN 28.2 pg (25-34); MEAN CORPUSCULAR HGB CONC 33.1 g/dl (32-36); MEAN PLATELET VOLUME 9.5 fL (7.4-10.4); PLATELET COUNT 312 K/uL (130-400); RED BLOOD COUNT 4.96 M/uL (4.2-5.4); WHITE BLOOD COUNT 7.57 K/uL (4.8-10.8)
[2017-03-25 05:55] LABS: PROTHROMBIN TIME (PATIENT) 10.4 SECONDS (9.0-12.0)
[2017-03-25 06:14] LABS: BUN/CREATININE RATIO 12.3 (10-20); CALCIUM 9.1 mg/dl (8.5-10.1); CREATININE 1.01 mg/dl (0.60-1.20); POTASSIUM 4.4 mmol/L (3.5-5.1)
[2017-03-25] MEDS: ALBUT/IPRATROP 3MG/0.5MG NEB 3 ML VIAL INH SCH ×3 (06:56→15:10)
[2017-03-25] MEDS: BuPROPion SR 100 MG TABCR PO SCH (08:31)
[2017-03-25] MEDS: CHOLECALCIFEROL 1000 INTER.UNIT TAB PO SCH (08:32)
[2017-03-25] MEDS: PANTOprazole SOD 40 MG TAB PO SCH (08:32)
[2017-03-25] MEDS: RANITIDINE HCL 150 MG TAB PO SCH ×2 (08:32→20:26)
[2017-03-25] MEDS: BusPIRone 15 MG TAB PO SCH (08:33)
[2017-03-25] MEDS: ATORVASTATIN 20 MG TAB PO SCH (08:33)
[2017-03-25] MEDS: LORAZEPAM 1 MG TAB PO SCH ×2 (08:35→20:26)
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
[2017-03-25] MEDS: ENOXAPARIN 40 MG/0.4 ML SYR SC SCH (17:17)
--- NOTE | 2017-03-25 17:31 | Progress Note ---
Medicine Progress Note Date & Time of Visit: Mar 25, 2017 at 13:14. Subjective Pt was seen and examined Lying in bed with no distress Pt said that she continues to have suicidal thought Pt said that she has been having a dry cough Continue to have SOB with exertion denies any palpitation, dizziness, hallucination Objective Last 8 Hrs Date Time Temp Pulse Resp B/P (MAP) Pulse Ox O2 Delivery O2 Flow Rate FiO2 03/25/17 16:00 Room Air 03/25/17 15:13 88 16 94 Room Air 03/25/17 15:00 36.7 86 18 123/80 (94) 95 Room Air 03/25/17 12:00 Room Air 03/25/17 11:42 36.8 94 18 133/77 (95) 92 Room Air 03/25/17 11:31 94 16 94 Room Air Physical Exam: General- No acute distress Head- atraumatic Eyes- PERRL, EOMI ENT- oropharynx clear Neck- supple, no JVD Lungs- No wheezing Heart- regular rhythm Abdomen- normal bowel sounds, soft Extremities- no calf tenderness Neuro- alert, oriented x 3; PERRL, EOMI; no facial palsy Skin- warm & dry Laboratory Results: Last 24 Hours Test 03/24/17 18:22 03/24/17 20:20 03/25/17 00:27 03/25/17 05:18 Troponin I < 0.015 ng/ml < 0.015 ng/ml Influenza Type A (RT-PCR) Neg for Influ A Influenza Type B (RT-PCR) Neg for Influ B White Blood Count 7.57 K/uL Red Blood Count 4.96 M/uL Hemoglobin 14.0 g/dL Hematocrit 42.3 % Mean Corpuscular Volume 85.3 fL Mean Corpuscular Hemoglobin 28.2 pg Mean Corpuscular Hemoglobin Concent 33.1 g/dl RDW Standard Deviation 41.3 fL RDW Coefficient of Variation 13.3 % Platelet Count 312 K/uL Mean Platelet Volume 9.5 fL Prothrombin Time 10.4 SECONDS Prothromb Time International Ratio 1.0 Sodium Level 142 mmol/L Potassium Level 4.4 mmol/L Chloride Level 108 mmol/L Carbon Dioxide Level 26 mmol/L Anion Gap 8.0 mmol/L Blood Urea Nitrogen 12 mg/dl Creatinine 1.01 mg/dl Est Creatinine Clear Calc Drug Dose 69.4 ml/min Estimated GFR () 71.1 Estimated GFR (Non- 61.3 BUN/Creatinine Ratio 12.3 Random Glucose 152 mg/dl Calcium Level 9.1 mg/dl Assessment & Plan Pressure Like chest discomfort Need to R/o ACS; risk factors include HLD, + family history Mostly Atypical Possible related to asthma vs anxiety (stress) All 3 sets troponin negative EKG showed no ischemic changes CTA Chest negative for PE Will get a an Echo to r/o any stress induce cardiomyopathy Cardiology consult if symptoms continue Asthma exacerbation: Likely precipitated by viral illness Flu PCR negative Afebrile, no leukocytosis Prednisone 40mg PO daily Continue neb treatment Depression/Anxiety having suicide ideation Psych on board Recommended to increase wellbutrin to Wellbutrin XL 300mg Pt cannot sign AMA 1 to 1 observation continue buspar and ativan prn Will need inpatient mental health treatment when medically cleared Dizziness Worse with positional change CT head negative for any acute abnormalities Fall precaution Stable GERD: Continue omeprazole, ranitidine DVT Ppx: Lovenox Code status: FULL CODE Disposition Will transfer to mental health unit once medically stable Consultants: Psych Current Inpatient Medications: Current Inpatient Medications Medications (Trade) Dose Ordered Sig/Anneliese Route Start Time Stop Time Status Last Admin Dose Admin Ioversol (Optiray 320) 125 ml UD PRN IV 03/24/17 12:15 03/28/17 12:14 Enoxaparin Sodium (Lovenox Inj) 40 mg Q24H SC 03/24/17 18:00 04/23/17 17:59 03/24/17 19:35 40 MG Ondansetron HCl (Zofran Inj) 4 mg Q6H PRN IV 03/24/17 15:15 04/23/17 15:14 Nitroglycerin (Nitrostat Tab) 0.4 mg UD PRN SL 03/24/17 15:15 04/23/17 15:14 Prednisone (PredniSONE TAB) 40 mg TODAY PO 03/24/17 18:00 04/23/17 17:59 03/24/17 19:35 40 MG Albuterol (Ventolin Hfa Inhaler) 2 puffs Q4H PRN INH 03/24/17 16:15 04/23/17 16:14 Atorvastatin Calcium (Lipitor Tab) 40 mg DAILY PO 03/25/17 09:00 04/24/17 08:59 03/25/17 08:33 40 MG Buspirone HCl (BusPAR TAB) 15 mg DAILY PO 03/25/17 09:00 04/24/17 08:59 03/25/17 08:33 15 MG Cholecalciferol (Vitamin D Tab) 2,000 inter.unit DAILY PO 03/25/17 09:00 04/24/17 08:59 03/25/17 08:32 2,000 INTER.UNIT Lorazepam (Ativan Tab) 1 mg BID PO 03/24/17 21:00 04/23/17 20:59 03/25/17 08:35 1 MG Ranitidine HCl (zANTac TAB) 150 mg BID PO 03/24/17 21:00 04/23/17 20:59 03/25/17 08:32 150 MG Trazodone HCl (Desyrel Tab) 50 mg HS PRN PO 03/24/17 16:15 04/23/17 16:14 Pantoprazole Sodium (Protonix Tab) 40 mg DAILY PO 03/25/17 09:00 04/24/17 08:59 03/25/17 08:32 40 MG Miscellaneous (Iv Fluids Completed) 1 ea PRN PRN N/A 03/24/17 16:30 03/24/18 16:29 Miscellaneous (Iv Fluids Completed) 1 ea PRN PRN N/A 03/24/17 16:30 03/24/18 16:29 Miscellaneous (Iv Fluids Completed) 1 ea PRN PRN N/A 03/24/17 16:30 03/24/18 16:29 Bupropion HCl (Wellbutrin-Xl Tab) 300 mg QAM PO 03/26/17 09:00 04/25/17 08:59
[2017-03-26 03:36] VITALS: BP 111/79; PULSE 102; TEMP 36.4; O2SAT 96
[2017-03-26] MEDS: LORAZEPAM 1 MG TAB PO SCH ×2 (07:52→20:48)
[2017-03-26] MEDS: RANITIDINE HCL 150 MG TAB PO SCH ×2 (07:52→20:48)
[2017-03-26] MEDS: ATORVASTATIN 20 MG TAB PO SCH (07:53)
[2017-03-26] MEDS: BuPROPion XL 300 MG TABCR PO SCH (07:53)
[2017-03-26] MEDS: BusPIRone 15 MG TAB PO SCH (07:53)
[2017-03-26] MEDS: CHOLECALCIFEROL 1000 INTER.UNIT TAB PO SCH (07:53)
[2017-03-26] MEDS: PANTOprazole SOD 40 MG TAB PO SCH (07:53)
[2017-03-26 11:24] VITALS: BP 136/58; PULSE 108; TEMP 36.7; O2SAT 96
[2017-03-26 15:18] VITALS: BP 111/70; PULSE 92; TEMP 36.9; O2SAT 97
--- NOTE | 2017-03-26 16:20 | ECHOCARDIOGRAM REPORT ---
*NOTICE TO RECEIVING [employer] This information is strictly Confidential and protected under [place] law. [place] law prohibits you from making any further disclosure of this information unless further disclosure is expressly permitted by the written consent of the person to whom it pertains or is authorized by law. A general authorization for the release of medical or other information is not sufficient for this purpose. Hospital accepts no responsibility if the information is made available to any other person, INCLUDING THE PATIENT. Interpretation Summary * Name: LAURA RAY Study Date: 03/25/2017 03:38 PM BP: 133/77 mmHg * Patient Location: [facility]\S\N279\S\1 HR: 94 * : 1960 (M/d/yyyy) Gender: Female Height: 64 in * Age: 57 yrs Ethnicity: CA Weight: 217 lb * Ordering Physician: Phoenix Mitchell * Referring Physician: Self, Referred * Performed By: Clair Yousif RDCS * * Reason For Study: Atrial Fibrillation * BSA: 2.0 m2 * The study was technically adequate. * -- Conclusions -- * Sinus rhythm was present during the echocardiogram study. * The left ventricular wall motion is normal. * Left ventricular systolic function is normal. * The LV Ejection Fraction = 60-65%. * Grade I diastolic dysfunction, (abnormal relaxation pattern). * Doppler findings do not suggest pulmonary hypertension. Procedure Details * A complete two-dimensional transthoracic echocardiogram was performed (2D, M-mode, Doppler and color flow Doppler). Left Ventricle * The left ventricle is normal in size. * There is normal left ventricular wall thickness. * Left ventricular systolic function is normal. * Ejection Fraction = 60-65%. * The left ventricular wall motion is normal. Right Ventricle * The right ventricle is normal size. * The right ventricular systolic function is normal as assessed by tricuspid annular plane systolic excursion (TAPSE) (normal >1.5 cm). Atria * The left atrial size is normal. * Right atrial size is normal. * There is no evidence of atrial septal defect, but resolution does not allow assessment for a patent foramen ovale. Mitral Valve * The mitral valve is normal. * There is no mitral valve stenosis. * Significant mitral regurgitation is absent. Tricuspid Valve * The tricuspid valve is normal. * There is no tricuspid stenosis. * Significant tricuspid regurgitation is absent. * Doppler findings do not suggest pulmonary hypertension. Aortic Valve * The aortic valve is trileaflet. * Aortic stenosis is absent. * There is no significant aortic regurgitation. Pulmonic Valve * The pulmonary valve is not well seen, but the Doppler examination is normal without significant regurgitation or stenosis. Great Vessels * The aortic root and proximal ascending aorta are normal sized. Pericardium/Pleural * There is no pericardial effusion. Great Vessels * Normal inferior vena cava diameter and respiratory variation suggests normal central venous pressure. * Normal inferior vena cava size and collapsability with sniff indicates a normal right atrial pressure of 3 mmHg Left Ventricular Diastolic Function * Grade I diastolic dysfunction, (abnormal relaxation pattern). MMode 2D Measurements and Calculations IVSd 0.96 cm IVSs 1.3 cm LVIDd 4.4 cm LVIDs 2.7 cm LVPWd 1.1 cm LVPWs 1.6 cm IVS/LVPW 0.90 FS 38.4 % EDV(Teich) 87.8 ml ESV(Teich) 27.3 ml EF(Teich) 69.0 % EDV(cubed) 85.3 ml ESV(cubed) 19.9 ml EF(cubed) 76.7 % % IVS thick 32.6 % % LVPW thick 48.6 % LV mass(C)d 150.1 grams LV mass(C)dI 74.1 grams/m\S\2 LV mass(C)s 127.0 grams LV mass(C)sI 62.7 grams/m\S\2 SV(Teich) 60.5 ml SI(Teich) 29.9 ml/m\S\2 SV(cubed) 65.4 ml SI(cubed) 32.3 ml/m\S\2 Ao root diam 2.7 cm Ao root area 5.8 cm\S\2 ACS 1.8 cm LA dimension 3.2 cm LA/Ao 1.2 LVAd ap4 22.8 cm\S\2 LVLd ap4 6.8 cm EDV(MOD-sp4) 64.5 ml EDV(sp4-el) 65.0 ml LVAs ap4 11.9 cm\S\2 LVLs ap4 5.5 cm ESV(MOD-sp4) 26.5 ml ESV(sp4-el) 21.6 ml EF(MOD-sp4) 58.9 % EF(sp4-el) 66.8 % LVAd ap2 19.6 cm\S\2 LVLd ap2 7.5 cm EDV(MOD-sp2) 46.8 ml EDV(sp2-el) 43.2 ml LVAs ap2 8.7 cm\S\2 LVLs ap2 5.3 cm ESV(MOD-sp2) 13.2 ml ESV(sp2-el) 12.1 ml EF(MOD-sp2) 71.7 % EF(sp2-el) 72.0 % LVLd %diff 10.0 % EDV(MOD-bp) 56.8 ml LVLs %diff -3.77 % ESV(MOD-bp) 18.9 ml EF(MOD-bp) 66.7 % SV(MOD-sp4) 38.0 ml SI(MOD-sp4) 18.8 ml/m\S\2 SV(MOD-sp2) 33.6 ml SI(MOD-sp2) 16.6 ml/m\S\2 SV(MOD-bp) 37.9 ml SI(MOD-bp) 18.7 ml/m\S\2 SV(sp4-el) 43.4 ml SI(sp4-el) 21.4 ml/m\S\2 SV(sp2-el) 31.1 ml SI(sp2-el) 15.3 ml/m\S\2 Doppler Measurements and Calculations MV E max kaylie 104.6 cm/sec MV A max kaylie 94.4 cm/sec MV E/A 1.1 MV dec time 0.19 sec Ao V2 max 182.5 cm/sec Ao max PG 13.3 mmHg Ao max PG (full) 8.4 mmHg LV V1 max PG 4.9 mmHg LV V1 max 111.1 cm/sec PA V2 max 116.9 cm/sec PA max PG 5.5 mmHg
[2017-03-26] MEDS: ENOXAPARIN 40 MG/0.4 ML SYR SC SCH (17:17)
--- NOTE | 2017-03-26 17:34 | Progress Note ---
Medicine Progress Note Date & Time of Visit: Mar 26, 2017 at 11:16. Subjective Pt was seen and examined Sitting with no distress Pt said that she does not have any chest tightness anymore She said that her sob improves She continues to cough Denies any palpitation, dizziness and chest pain Objective Last 8 Hrs Date Time Temp Pulse Resp B/P (MAP) Pulse Ox O2 Delivery O2 Flow Rate FiO2 03/26/17 16:00 Room Air 03/26/17 15:18 36.9 92 20 111/70 (84) 97 Room Air 03/26/17 12:06 Room Air 03/26/17 11:24 36.7 108 18 136/58 (84) 96 Physical Exam: General- No acute distress Head- atraumatic Eyes- PERRL, EOMI ENT- oropharynx clear Neck- supple, no JVD Lungs- No wheezing Heart- regular rhythm Abdomen- normal bowel sounds, soft Extremities- no calf tenderness Neuro- alert, oriented x 3; PERRL, EOMI; no facial palsy Skin- warm & dry Assessment & Plan Pressure Like chest discomfort Need to R/o ACS; risk factors include HLD, + family history Mostly Atypical Possible related to asthma vs anxiety (stress) All 3 sets troponin negative EKG showed no ischemic changes CTA Chest negative for PE Symptoms resolved Medically stable to transfer to [facility] Echo done showed Sinus rhythm was present during the echocardiogram study. The left ventricular wall motion is normal. Left ventricular systolic function is normal. The LV Ejection Fraction = 60-65%. Grade I diastolic dysfunction, (abnormal relaxation pattern). Doppler findings do not suggest pulmonary hypertension. Asthma exacerbation: Likely precipitated by viral illness Flu PCR negative Afebrile, no leukocytosis Prednisone 40mg PO daily Continue neb treatment Depression/Anxiety having suicide ideation Psych on board Recommended to increase wellbutrin to Wellbutrin XL 300mg Pt cannot sign AMA 1 to 1 observation continue buspar and ativan prn Medically stable to transfer to mental health for inpatient psych treatment Dizziness Worse with positional change CT head negative for any acute abnormalities Fall precaution Stable GERD: Continue omeprazole, ranitidine DVT Ppx: Lovenox Code status: FULL CODE Disposition Medically stable to transfer to mental health unit Consultants: Psych Current Inpatient Medications: Current Inpatient Medications Medications (Trade) Dose Ordered Sig/Anneliese Route Start Time Stop Time Status Last Admin Dose Admin Ioversol (Optiray 320) 125 ml UD PRN IV 03/24/17 12:15 03/28/17 12:14 Enoxaparin Sodium (Lovenox Inj) 40 mg Q24H SC 03/24/17 18:00 04/23/17 17:59 03/24/17 19:35 40 MG Ondansetron HCl (Zofran Inj) 4 mg Q6H PRN IV 03/24/17 15:15 04/23/17 15:14 Nitroglycerin (Nitrostat Tab) 0.4 mg UD PRN SL 03/24/17 15:15 04/23/17 15:14 Prednisone (PredniSONE TAB) 40 mg TODAY PO 03/24/17 18:00 04/23/17 17:59 03/25/17 17:17 40 MG Albuterol (Ventolin Hfa Inhaler) 2 puffs Q4H PRN INH 03/24/17 16:15 04/23/17 16:14 Atorvastatin Calcium (Lipitor Tab) 40 mg DAILY PO 03/25/17 09:00 04/24/17 08:59 03/26/17 07:53 40 MG Buspirone HCl (BusPAR TAB) 15 mg DAILY PO 03/25/17 09:00 04/24/17 08:59 03/26/17 07:53 15 MG Cholecalciferol (Vitamin D Tab) 2,000 inter.unit DAILY PO 03/25/17 09:00 04/24/17 08:59 03/26/17 07:53 2,000 INTER.UNIT Lorazepam (Ativan Tab) 1 mg BID PO 03/24/17 21:00 04/23/17 20:59 03/26/17 07:52 1 MG Ranitidine HCl (zANTac TAB) 150 mg BID PO 03/24/17 21:00 04/23/17 20:59 03/26/17 07:52 150 MG Trazodone HCl (Desyrel Tab) 50 mg HS PRN PO 03/24/17 16:15 04/23/17 16:14 Pantoprazole Sodium (Protonix Tab) 40 mg DAILY PO 03/25/17 09:00 04/24/17 08:59 03/26/17 07:53 40 MG Miscellaneous (Iv Fluids Completed) 1 ea PRN PRN N/A 03/24/17 16:30 03/24/18 16:29 Miscellaneous (Iv Fluids Completed) 1 ea PRN PRN N/A 03/24/17 16:30 03/24/18 16:29 Miscellaneous (Iv Fluids Completed) 1 ea PRN PRN N/A 03/24/17 16:30 03/24/18 16:29 Bupropion HCl (Wellbutrin-Xl Tab) 300 mg QAM PO 03/26/17 09:00 04/25/17 08:59 03/26/17 07:53 300 MG
[2017-03-26] MEDS ORDERED: LEVALBUTEROL 0.63MG/3 ML NEB INH PRN (17:45)
[2017-03-26] MEDS ORDERED: LEVALBUTEROL/IPRATROPIUM NEB INH PRN (17:45)
[2017-03-26] MEDS ORDERED: IPRATROPIUM BROMIDE NEB SOLN 0.02% 2.5 ML VIAL INH PRN (17:45)
[2017-03-26 18:06] VITALS: PULSE 93; O2SAT 95
[2017-03-26 19:25] VITALS: BP 136/80; PULSE 95; TEMP 36.6; O2SAT 95
[2017-03-26 23:50] VITALS: BP 125/79; PULSE 84; TEMP 36.4; O2SAT 96
[2017-03-27 04:23] VITALS: BP 150/71; PULSE 75; TEMP 36.7; O2SAT 95
[2017-03-27] MEDS: ATORVASTATIN 20 MG TAB PO SCH (07:43)
[2017-03-27] MEDS: RANITIDINE HCL 150 MG TAB PO SCH (07:43)
[2017-03-27] MEDS: LORAZEPAM 1 MG TAB PO SCH (07:43)
[2017-03-27] MEDS: CHOLECALCIFEROL 1000 INTER.UNIT TAB PO SCH (07:43)
[2017-03-27] MEDS: BuPROPion XL 300 MG TABCR PO SCH (07:44)
[2017-03-27] MEDS: PANTOprazole SOD 40 MG TAB PO SCH (07:44)
[2017-03-27] MEDS: BusPIRone 15 MG TAB PO SCH (07:44)
[2017-03-27 08:07] VITALS: BP 134/79; PULSE 84; TEMP 36.4; O2SAT 96
[2017-03-27] MEDS ORDERED: GUAIFENESIN 200 MG TAB PO PRN (08:30)
[2017-03-27 09:19] VITALS: O2SAT 96
[2017-03-27 11:15] VITALS: BP 127/78; PULSE 97; TEMP 36.6; O2SAT 97
[2017-03-27 12:54] VITALS: BP 127/78; PULSE 97; TEMP 36.6; O2SAT 97
--- NOTE | 2017-03-27 13:36 | Progress Note ---
Medicine Progress Note Date & Time of Visit: Mar 27, 2017 at 13:29. Subjective Pt was seen and examined Lying in bed with no distress Pt was tearful this morning she continues to have suicide thought She said that she does not have any chest discomfort anymore she said that her SOB improved Denies any chest pain, palpitation, dizziness and sob Objective Last 8 Hrs Date Time Temp Pulse Resp B/P (MAP) Pulse Ox O2 Delivery O2 Flow Rate FiO2 03/27/17 12:54 36.6 97 16 97 Room Air 03/27/17 11:15 36.6 97 16 127/78 (94) 97 Room Air 03/27/17 09:19 96 Room Air 03/27/17 08:07 36.4 84 12 134/79 (97) 96 Room Air 03/27/17 08:00 Room Air Physical Exam: General- No acute distress Head- atraumatic Eyes- PERRL, EOMI ENT- oropharynx clear Neck- supple, no JVD Lungs- No wheezing Heart- regular rhythm Abdomen- normal bowel sounds, soft Extremities- no calf tenderness Neuro- alert, oriented x 3; PERRL, EOMI; no facial palsy Skin- warm & dry Assessment & Plan Pressure Like chest discomfort Need to R/o ACS; risk factors include HLD, + family history Mostly Atypical Possible related to asthma vs anxiety (stress) All 3 sets troponin negative EKG showed no ischemic changes CTA Chest negative for PE Symptoms resolved Medically stable to transfer to [facility] Echo done showed Sinus rhythm was present during the echocardiogram study. The left ventricular wall motion is normal. Left ventricular systolic function is normal. The LV Ejection Fraction = 60-65%. Grade I diastolic dysfunction, (abnormal relaxation pattern). Doppler findings do not suggest pulmonary hypertension. Asthma exacerbation: Likely precipitated by viral illness Flu PCR negative Afebrile, no leukocytosis Prednisone 20mg for 3 more days Continue neb treatment Depression/Anxiety Continue to have suicide ideation Psych on board Recommended to increase wellbutrin to Wellbutrin XL 300mg Pt cannot sign AMA 1 to 1 observation continue buspar and ativan prn Medically stable to transfer to mental health for inpatient psych treatment Dizziness Worse with positional change CT head negative for any acute abnormalities Fall precaution Stable GERD: Continue omeprazole, ranitidine DVT Ppx: Lovenox Code status: FULL CODE Disposition Medically stable to transfer to mental health unit Pt will transfer today to Mental Health unit Consultants: Psych Current Inpatient Medications: Current Inpatient Medications Medications (Trade) Dose Ordered Sig/Anneliese Route Start Time Stop Time Status Last Admin Dose Admin Ioversol (Optiray 320) 125 ml UD PRN IV 03/24/17 12:15 03/28/17 12:14 Enoxaparin Sodium (Lovenox Inj) 40 mg Q24H SC 03/24/17 18:00 04/23/17 17:59 03/24/17 19:35 40 MG Ondansetron HCl (Zofran Inj) 4 mg Q6H PRN IV 03/24/17 15:15 04/23/17 15:14 03/27/17 10:22 4 MG Nitroglycerin (Nitrostat Tab) 0.4 mg UD PRN SL 03/24/17 15:15 04/23/17 15:14 Albuterol (Ventolin Hfa Inhaler) 2 puffs Q4H PRN INH 03/24/17 16:15 04/23/17 16:14 Atorvastatin Calcium (Lipitor Tab) 40 mg DAILY PO 03/25/17 09:00 04/24/17 08:59 03/27/17 07:43 40 MG Buspirone HCl (BusPAR TAB) 15 mg DAILY PO 03/25/17 09:00 04/24/17 08:59 03/27/17 07:44 15 MG Cholecalciferol (Vitamin D Tab) 2,000 inter.unit DAILY PO 03/25/17 09:00 04/24/17 08:59 03/27/17 07:43 2,000 INTER.UNIT Lorazepam (Ativan Tab) 1 mg BID PO 03/24/17 21:00 04/23/17 20:59 03/27/17 07:43 1 MG Ranitidine HCl (zANTac TAB) 150 mg BID PO 03/24/17 21:00 04/23/17 20:59 03/27/17 07:43 150 MG Trazodone HCl (Desyrel Tab) 50 mg HS PRN PO 03/24/17 16:15 04/23/17 16:14 Pantoprazole Sodium (Protonix Tab) 40 mg DAILY PO 03/25/17 09:00 04/24/17 08:59 03/27/17 07:44 40 MG Miscellaneous (Iv Fluids Completed) 1 ea PRN PRN N/A 03/24/17 16:30 03/24/18 16:29 Miscellaneous (Iv Fluids Completed) 1 ea PRN PRN N/A 03/24/17 16:30 03/24/18 16:29 Miscellaneous (Iv Fluids Completed) 1 ea PRN PRN N/A 03/24/17 16:30 03/24/18 16:29 Bupropion HCl (Wellbutrin-Xl Tab) 300 mg QAM PO 03/26/17 09:00 04/25/17 08:59 03/27/17 07:44 300 MG Ipratropium St[place] (Atrovent 0.02% 0.5MG/2.5ML Neb) 0.5 mg Q6R PRN INH 03/26/17 17:45 04/25/17 17:44 03/26/17 18:05 0.5 MG Levalbuterol (Xopenex 0.63 Mg/ 3 Ml Neb) 0.63 mg Q6R PRN INH 03/26/17 17:45 04/25/17 17:44 03/26/17 18:06 0.63 MG Prednisone (PredniSONE TAB) 20 mg TODAY@1800 PO 03/27/17 18:00 04/26/17 17:59 Guaifenesin (Organidin Nr Tab) 200 mg Q6 PRN PO 03/27/17 08:30 04/26/17 08:29
[2017-03-27] MEDS ORDERED: WLLXL300 PO (13:41)
[2017-03-27] MEDS ORDERED: GUAI1TAB68 PO (13:41)
[2017-03-27] MEDS ORDERED: PRD20 PO (13:41)
--- NOTE | 2017-03-27 13:46 | Discharge Instructions ---
Discharge Instructions Date of Service Mar 27, 2017. Admission Reason for Admission: Asthma Exacerbation, Chest Pain Discharge Discharge Diagnosis / Problem: Anxiety/Depression, Pressure Like chest discomfort, Astma exacerbation Discharge Goals Goal(s): Decrease discomfort, Improve function, Improve disease control Activity Recommendations Activity Limitations: resume your previous activity . Instructions / Follow-Up Instructions / Follow-Up Transfer for inpatient psych treatment Follow up with your primary care provider once discharge from psych Suicidal watch Current Hospital Diet Patient's current hospital diet: Low Fat Diet Discharge Diet Recommended Diet: Regular Diet Pending Studies Studies pending at discharge: no Medical Emergencies . Who to Call and When: Medical Emergencies: If at any time you feel your situation is an emergency, please call 911 immediately. . Non-Emergent Contact Non-Emergency issues call your: Primary Care Provider Call Non-Emergent contact if: you have any medication questions . . "Provider Documentation" section prepared by Phoenix Mitchell. . VTE Core Measure Inpt VTE Proph given/why not?: Enoxaparin (Lovenox)SQ
--- NOTE | 2017-03-28 08:05 | Discharge Summary ---
Discharge Summary Date of Service Mar 28, 2017. Discharge Summary Admission Date: Mar 24, 2017 at 15:15 Discharge Date: Mar 27, 2017 Discharge Disposition: Acute care mental health Principal Diagnosis: Pressure Like chest discomfort Secondary Diagnoses/Problems: Depression/Anxiety Asthma Dizziness Procedures: ECHO Interpretation Summary * Name: LAURA RAY Study Date: 03/25/2017 03:38 PM BP: 133/77 mmHg * Patient [facility]S\\1 HR: 94 * : 1960 (M/d/yyyy) Gender: Female Height: 64 in * Age: 57 yrs Ethnicity: [place] Weight: 217 lb * Ordering Physician: Phoenix Mitchell * Referring Physician: Self, Referred * Performed By: Clair Yousif RDCS * * Reason For Study: Atrial Fibrillation * BSA: 2.0 m2 * The study was technically adequate. * -- Conclusions -- * Sinus rhythm was present during the echocardiogram study. * The left ventricular wall motion is normal. * Left ventricular systolic function is normal. * The LV Ejection Fraction = 60-65%. * Grade I diastolic dysfunction, (abnormal relaxation pattern). * Doppler findings do not suggest pulmonary hypertension. Procedure Details * A complete two-dimensional transthoracic echocardiogram was performed (2D, M- mode, Doppler and color flow Doppler). Left Ventricle * The left ventricle is normal in size. * There is normal left ventricular wall thickness. * Left ventricular systolic function is normal. * Ejection Fraction = 60-65%. * The left ventricular wall motion is normal. Right Ventricle * The right ventricle is normal size. * The right ventricular systolic function is normal as assessed by tricuspid annular plane systolic excursion (TAPSE) (normal >1.5 cm). Atria * The left atrial size is normal. * Right atrial size is normal. * There is no evidence of atrial septal defect, but resolution does not allow assessment for a patent foramen ovale. Mitral Valve * The mitral valve is normal. * There is no mitral valve stenosis. * Significant mitral regurgitation is absent. Tricuspid Valve * The tricuspid valve is normal. * There is no tricuspid stenosis. * Significant tricuspid regurgitation is absent. * Doppler findings do not suggest pulmonary hypertension. Aortic Valve * The aortic valve is trileaflet. * Aortic stenosis is absent. * There is no significant aortic regurgitation. Pulmonic Valve * The pulmonary valve is not well seen, but the Doppler examination is normal without significant regurgitation or stenosis. Great Vessels * The aortic root and proximal ascending aorta are normal sized. Pericardium/Pleural * There is no pericardial effusion. Great Vessels * Normal inferior vena cava diameter and respiratory variation suggests normal central venous pressure. * Normal inferior vena cava size and collapsability with sniff indicates a normal right atrial pressure of 3 mmHg Left Ventricular Diastolic Function * Grade I diastolic dysfunction, (abnormal relaxation pattern). (CHEST FOR PE) ANGIO WITH CT DOSE: 1214.06 mGy.cm HISTORY: 57 years-old Female presents with acute headache, dizziness, shortness of breath and chest pain with cough TECHNIQUE: Multiple CTA images of the chest were obtained after the intravenous administration of 87 ml Optiray 320. Coronal and sagittal MIPS were obtained from the axial data set and were submitted for review. A dose lowering technique was utilized adhering to the principles of ALARA. COMPARISON: CTA of the chest 10/08/2016 FINDINGS: CTA: There is adequate opacification of the pulmonary arteries to the level of the subsegmental branches without convincing evidence of acute pulmonary embolism. Evaluation of the pulmonary arterial tree however is somewhat limited secondary to respiratory motion. The thoracic aorta is normal in both course and caliber without aneurysm or dissection. Heart size is normal. CT CHEST: Thyroid is homogeneous. No pathologic adenopathy of the chest identified. No pneumothorax, pleural effusion or focal airspace consolidation. Minimal dependent bibasilar atelectasis. Subcentimeter calcified granuloma of the right lower lobe. No suspicious pulmonary nodules or masses identified. Central airways are patent. No acute abnormality of the imaged upper abdomen. Soft tissues are unremarkable. Bones appear intact. There are moderate degenerative changes of the right AC joint. Multilevel spondylitic changes of the spine.. IMPRESSION: No acute intrathoracic abnormality identified, specifically no acute aortic pathology or evidence of pulmonary thromboembolic disease. The above report was generated using voice recognition software. It may contain grammatical, syntax or spelling errors. Electronically signed by: Samuel Bailey M.D. 03/24/2017 1:53 PM Dictated Date/Time: 03/24/2017 1:47 PM HEAD WITHOUT CONTRAST (CT) CLINICAL HISTORY: 57 years-old Female with new onset headache. Acute headache with dizziness, shortness of breath and chest pain TECHNIQUE: Multiple axial CT images of the head were obtained without contrast. A dose lowering technique was utilized adhering to the principles of ALARA. COMPARISON: CT head 08/14/2007. FINDINGS: No acute intracranial hemorrhage, midline shift, mass, large territorial ischemia or abnormal extra-axial collection. The calvarium is intact. The paranasal sinuses, mastoid air cells, and middle ear cavities are clear. IMPRESSION: No acute intracranial abnormality. The above report was generated using voice recognition software. It may contain grammatical, syntax or spelling errors. Electronically signed by: Samuel Bailey M.D. 03/24/2017 1:43 PM Dictated Date/Time: 03/24/2017 1:41 PM Consultations: Psych Medication Reconciliation New Medications: Bupropion HCl (Bupropion HCl Xl) 300 Mg Tabcr 300 MG PO QAM for 30 Days Guaifenesin (Organ-I Nr) 200 Mg Tab 200 MG PO Q8 PRN for cough for 5 Days, #15 TAB Prednisone (Prednisone) 20 Mg Tab 20 MG PO TODAY@1800 for 2 Days, TAB Continued Medications: Albuterol (Ventolin Hfa) 60 Puffs/5400 Mcg Aers 2 PUFF PO PRN for SOB/Wheezing Atorvastatin (Lipitor) 40 Mg Tab 1 TAB PO DAILY for 30 Days, #30 TAB 5 Refills Buspirone Hcl (Buspar) 15 Mg Tab 15 MG PO DAILY, TAB Cholecalciferol (Vitamin D3) 1,000 Unit Tab 2000 UNIT PO DAILY for 90 Days, #18 TAB 3 Refills Lorazepam (Ativan) 1 Mg Tab 1 MG PO BID, TAB Multivitamin (Multivitamin) Tab 1 TAB PO DAILY, 0 Refills Omeprazole (Prilosec) 20 Mg Cap 20 MG PO DAILY, CAP Ranitidine (Zantac) 150 Mg Tab 150 MG PO BID, TAB Trazodone Hcl (Trazodone) 50 Mg Tab 50 MG PO HS PRN for Insomnia, TAB Discontinued Medications: Bupropion (Wellbutrin) 100 Mg Tab 100 MG PO BID JUST STARTED ON THIS 2 WEEKS AGO. PT UNSURE IF IT IS SR, XL OR REGULAR. Admission Information HPI (per Admitting provider): This is a 57yo F with a PMH of asthma, anxiety, depression, GERD who presents with worsening SOB over the past week. Patient has a history of asthma that is controlled with her albuterol inhaler PRN. However, for the past week she has become dyspneic when talking as well as with any type of movement despite use of her inhaler. Associated symptoms include central chest tightness, a dry cough , chills and a dull frontal headache. Started to lose her voice yesterday. + sick contacts (son who lives at home). Also endorses worsening acid reflux over the past few days as well as nausea and an episode of dry heaving earlier today. Has been working despite not feeling well until today, when she felt lightheaded and "about to pass out". Denies any syncopal events. Called to bring her to ER for further evaluation. Patient denies a history of heart disease but has experienced this chest tightness before during times of elevated anxiety. Had a stress echo performed last year which was negative. States that anxiety and depression have been worse over the past few months. Has been stressed with her son's chronic illness and repetitive need for hospitalization. Also has been adjusting to a new work schedule. Complains of decreased appetite, insomnia, anhedonia and suicidal ideation with a plan (overdose on medication at home). Denies any previous suicidal attempts. PCP has recently stopped Cymbalta and started Wellbutrin 2 weeks ago. Encouraged her to follow-up with a psychiatrist and therapist for further medication management but patient has not yet set up care. Physical Exam (per Admitting): General Appearance: + mild distress Head: normocephalic, atraumatic, + pertinent finding (No TTP of sinuses ) Eyes: normal inspection, PERRL, sclerae normal (Conjunctiva normal ) ENT: normal ENT inspection, hearing grossly normal, pharynx normal, + muffled/hoarse voice (Hoarse voice, whispered speech) Neck: supple, thyroid normal, trachea midline Respiratory/Chest: chest non-tender, no respiratory distress, no accessory muscle use, + wheezing (expiratory wheezing) Cardiovascular: regular rate, rhythm, no murmur, normal peripheral pulses Abdomen/GI: normal bowel sounds, non tender, soft, no organomegaly Extremities/Musculoskelatal: normal inspection, no calf tenderness, no pedal edema, non-tender Neurologic/Psych: no motor/sensory deficits, alert, oriented x 3, + depressed affect (Crying intermittently during interview ) Skin: normal color, warm/dry, no rash Hospital Course Pressure Like chest discomfort Need to R/o ACS; risk factors include HLD, + family history Mostly Atypical Possible related to asthma vs anxiety (stress) All 3 sets troponin negative EKG showed no ischemic changes CTA Chest negative for PE Symptoms resolved Medically stable to transfer to mental health Echo done showed Sinus rhythm was present during the echocardiogram study. The left ventricular wall motion is normal. Left ventricular systolic function is normal. The LV Ejection Fraction = 60-65%. Grade I diastolic dysfunction, (abnormal relaxation pattern). Doppler findings do not suggest pulmonary hypertension. Asthma exacerbation: Likely precipitated by viral illness Flu PCR negative Afebrile, no leukocytosis Prednisone 20mg for 3 more days Continue neb treatment Depression/Anxiety Continue to have suicide ideation Psych on board Recommended to increase wellbutrin to Wellbutrin XL 300mg Pt cannot sign AMA 1 to 1 observation continue buspar and ativan prn Medically stable to transfer to mental health for inpatient psych treatment Dizziness Worse with positional change CT head negative for any acute abnormalities Fall precaution Stable GERD: Continue omeprazole, ranitidine DVT Ppx: Lovenox Code status: FULL CODE Disposition Medically stable to transfer to mental health unit Pt will transfer today to Mental Health unit Total time spent on discharge = 35 minutes This includes examination of the patient, discharge planning, medication reconciliation, and communication with other providers. Discharge Instructions Discharge Instructions Date of Service Mar 27, 2017. Admission Reason for Admission: Asthma Exacerbation, Chest Pain Discharge Discharge Diagnosis / Problem: Anxiety/Depression, Pressure Like chest discomfort, Astma exacerbation Discharge Goals Goal(s): Decrease discomfort, Improve function, Improve disease control Activity Recommendations Activity Limitations: resume your previous activity . Instructions / Follow-Up Instructions / Follow-Up Transfer for inpatient psych treatment Follow up with your primary care provider once discharge from psych Suicidal watch Current Hospital Diet Patient's current hospital diet: Low Fat Diet Discharge Diet Recommended Diet: Regular Diet Pending Studies Studies pending at discharge: no Medical Emergencies . Who to Call and When: Medical Emergencies: If at any time you feel your situation is an emergency, please call 911 immediately. . Non-Emergent Contact Non-Emergency issues call your: Primary Care Provider Call Non-Emergent contact if: you have any medication questions . . "Provider Documentation" section prepared by Phoenix Mitchell. . VTE Core Measure Inpt VTE Proph given/why not?: Enoxaparin (Lovenox)SQ [facility] Ashkan Rebolledo III, M.D.
== END 2017-03-27 16:48 ==
LOC: C.EDB 10:51 → C.MED 15:15 → ENRESERV 15:34
PROVIDERS: ADMIT Internal Medicine; ATTEND Internal Medicine
DX: R07.89 Other chest pain (principal); F32.9 Major depressive disorder, single episode, unspecified; F41.9 Anxiety disorder, unspecified; J45.909 Unspecified asthma, uncomplicated; R42 Dizziness and giddiness; K21.9 Gastro-esophageal reflux disease without esophagitis; E78.5 Hyperlipidemia, unspecified; E66.9 Obesity, unspecified; Z79.899 Other long term (current) drug therapy; Z88.0 Allergy status to penicillin; Z88.2 Allergy status to sulfonamides

== ENCOUNTER 2022-01-21 05:03 | Observation (INO) ==
--- NOTE | 2022-01-03 12:05 | PAT Medication Instructions ---
Medication Instructions Date of Service January 03, 2022 Home Medications atorvastatin 40 mg tablet (Lipitor) 40 mg PO QAM cholecalciferol (vitamin D3) 50 mcg (2,000 unit) tablet (Vitamin D3) 2,000 unit PO QAM multivitamin 1 tab PO QAM ferrous sulfate 325 mg (65 mg iron) tablet (iron) 325 mg PO UD duloxetine 20 mg capsule,delayed release (Cymbalta) 20 mg PO QAM gabapentin 100 mg capsule 100 mg PO TID albuterol 90 mcg/actuation aerosol inhaler 90 mcg inhalation QID PRN Shortness Of Breath Or Wheezing apple cider vinegar 300 mg tablet 300 mg PO QAM STOP taking 2 weeks before surgery (or as soon as possible if surgery is within 2 weeks) apple cider vinegar 300 mg tablet 300 mg PO QAM DO NOT take the morning of surgery cholecalciferol (vitamin D3) 50 mcg (2,000 unit) tablet (Vitamin D3) 2,000 unit PO QAM multivitamin 1 tab PO QAM ferrous sulfate 325 mg (65 mg iron) tablet (iron) 325 mg PO UD Take morning of surgery With a small sip of water, OTHERWISE NOTHING TO EAT OR DRINK AFTER MIDNIGHT: atorvastatin 40 mg tablet (Lipitor) 40 mg PO QAM duloxetine 20 mg capsule,delayed release (Cymbalta) 20 mg PO QAM gabapentin 100 mg capsule 100 mg PO TID albuterol 90 mcg/actuation aerosol inhaler 90 mcg inhalation QID PRN Shortness Of Breath Or Wheezing (use if needed; please bring rescue inhaler with you to hospital day of surgery if possible) Take evening before surgery gabapentin 100 mg capsule 100 mg PO TID albuterol 90 mcg/actuation aerosol inhaler 90 mcg inhalation QID PRN Shortness Of Breath Or Wheezing (if needed) Other Notes If you have any questions please call us at [phone] or [phone] or [phone] or [phone]
--- NOTE | 2022-01-10 11:31 | Anesthesiology Consultation ---
Date of Service January 10, 2022 Assessment & Plan (1) Encounter for pre-operative examination: - COVID screening: Per assessment on 01/10: No known COVID-19 positive contacts or current COVID-19 related symptoms. Travel screen- returned from travel to [place] 01/07 (no large gatherings, sightseeing at [place]). Patient vaccinated. Surgeon arranging preop COVID testing. Awaiting results. - Isopropyl alcohol: rash/hives reaction in the past- no chlorhexidine wipes given at PAT visit. Chart Review Chart Review: Acceptable Risk for Surgery and Patient seen in Pre Admission Test ing Teaching & Discussion Pre-Anesthesia Teaching/Discussion Notes: Instructed NPO after midnight before surgery,except medications with 15 cc of water. Medication instructions provided according to the [facility] guidelines. History Surgery Operation Date: 01/21/22 10:40 Proposed Procedures p Right Total Hip Arthroplasty - David Soriano MD Height/Weight Height: 5 ft 3 in Weight: 93.5 kg Allergies Allergy/AdvReac Type Severity Reaction Status Date / Time isopropyl alcohol Allergy Unknown Rash, Verified 01/10/22 11:37 hives (Please use iodine per Dr. Joaquin Jolly) Penicillins Allergy Unknown Hives Verified 01/04/22 08:47 dichloralphenazone AdvReac Mild GI bleed Verified 01/04/22 08:47 isometheptene AdvReac Mild GI Bleed Verified 01/04/22 08:47 Sulfa (Sulfonamide AdvReac Mild GI upset Verified 01/04/22 08:47 Antibiotics) aspirin AdvReac Unknown GI upset Verified 01/04/22 08:47 ibuprofen AdvReac Unknown Vaginal Verified 01/04/22 08:47 spotting, GI bleed Medications Home Medications Medication Instructions Recorded Confirmed Last Taken atorvastatin 40 mg tablet (Lipitor) 40 mg PO QAM 01/05/19 01/03/22 Unknown cholecalciferol (vitamin D3) 50 2,000 unit PO QAM 01/05/19 01/03/22 Unknown mcg (2,000 unit) tablet (Vitamin D3) multivitamin 1 tab PO QAM 01/05/19 01/03/22 Unknown ferrous sulfate 325 mg (65 mg 325 mg PO UD 02/11/20 01/03/22 Unknown iron) tablet (iron) duloxetine 20 mg capsule,delayed 20 mg PO QAM 12/28/21 01/03/22 Unknown release (Cymbalta) gabapentin 100 mg capsule 100 mg PO TID 12/28/21 01/03/22 Unknown albuterol 90 mcg/actuation aerosol 90 mcg inhalation QID PRN 01/03/22 01/03/22 Unknown inhaler Shortness Of Breath Or Wheezing apple cider vinegar 300 mg tablet 300 mg PO QAM 01/03/22 01/03/22 Unknown Past Medical History Medical History Anxiety Asthma Well controlled Degenerative joint disease of right hip GERD (gastroesophageal reflux disease) Diet controlled History of COVID-19 Dx 07/2021 Symptoms at time: fatigue, weakness, bronchitis > resolved HLD (hyperlipidemia) Major depressive disorder, recurrent severe without psychotic features Obesity Sleep apnea No device (Previously used CPAP, did not tolerate device) Exercise / Class Metabolic Activity II 4-5 Yardwork/Stairs/Walk up hill (one FS (no CP, no SOB)) Past Surgical History Surgical History History of bilateral tubal ligation History of cataract surgery right/left History of colonoscopy S/P arthroscopic knee surgery left S/P laparotomy after ectopic [place] teeth extracted Past Anesthesia History No Hx of Anesthesia Complications and No Family Hx of Anesthesia Complications History of PONV No Hx of PONV and No Hx of Motion Sickness Social History Smoking Status: Never smoker Do You Dip or Chew Tobacco: No Hx Alcohol Use: No Hx Substance Use: No substance use type: does not use Review of Systems Patient denies chest pain, shortness of breath, dyspnea on exertion, fever, chills, cough, wheezing, palpitations. Physical Exam Vital Signs VITALS BP 134/82 P 75 TE 98.6MP SP02 73 RESP 18 PHYSICAL Full cervical extension range of motion. Full TMJ range of motion. TMD 4 finger breaths Mallampati Score 1 Dentition: intact Lungs: clear throughout to auscultation Cardiac: regular rate and rhythm, no murmurs noted Spine: normal Carotid arteries: negative bruit Extremities: no edema Lab Results Anesthesia Preop Results Results Anesthesia Widget: WBC 6.55 K/ul (4.8-10.8) 01/10/22 Hgb 13.5 g/dl (12.0-16.0) 01/10/22 Hct 41.4 % (34.1-44.9) 01/10/22 Plt 349 K/uL (130-400) 01/10/22 Na 141 mmol/L (136-145) 01/10/22 K 4.1 mmol/L (3.5-5.1) 01/10/22 Cl 106 mmol/L (98-107) 01/10/22 CO2 30 mmol/L (21-32) 01/10/22 BUN 11 mg/dl (6-23) 01/10/22 Creat 0.87 mg/dl (0.6-1.2) 01/10/22 Glucose Level 93 mg/dl (70-99(Fasting)) 01/10/22 PT 10.3 Seconds (9.0-12.0) 01/10/22 PTT 26.2 Seconds (21.0-31.0) 01/10/22 INR 1.0 (0.9-1.1) 01/10/22 Blood Type A Positive 01/10/22 Antibody Screen NEGATIVE 01/10/22 Testing Electrocardiogram Date: 07/26/21 Normal sinus rhythm at 72 bpm. Low voltage QRS. Poor data quality. No significant change compared to 01/05/2019. Chest X-Ray Date: 07/26/21 FINDINGS: The cardiac silhouette remains mildly enlarged. No focal lung consolidations to suggest pneumonia. No evidence for pulmonary edema. No pleural effusions. No pneumothorax. IMPRESSION: No significant change compared to the prior study. No acute process. Echocardiogram Date: 03/25/17 EF 60-65%. No regional motion abnormality. No significant valvular disease. Grade 1 diastolic dysfunction.
[2022-01-21] MEDS ORDERED: CeleBREX 200 MG CAP PO SCH (06:00)
[2022-01-21] MEDS ORDERED: LR 60ML/HR IV SCH (06:00)
[2022-01-21] MEDS ORDERED: Scopolamine 1 MG TDSY TD SCH (06:00)
[2022-01-21] MEDS ORDERED: ceFAZolin 2000MG 2,000 MG/15 ML SYR IV SCH (06:00)
[2022-01-21] MEDS ORDERED: ACETAMINOPHEN 500 MG TAB PO SCH (06:00)
[2022-01-21] MEDS ORDERED: TRANEXAMIC ACID 1,000 MG **IV Pre-op IV SCH (06:00)
[2022-01-21] MEDS ORDERED: METOCLOPRAMIDE HCL 10 MG TABLET PO SCH (06:00)
[2022-01-21] MEDS ORDERED: LR 500ML BOLUS, THEN 15ML/HR IV SCH (06:00)
[2022-01-21] MEDS ORDERED: FAMOTIDINE 20 MG TAB PO SCH (06:00)
[2022-01-21] MEDS ORDERED: BUPIVACAINE 0.5 % 5 MG/1 ML PF 10ML VIAL ONE (06:21)
[2022-01-21] MEDS ORDERED: MIDAZOLAM HCL 1 MG/ML 2ML VIAL ONE (06:32)
[2022-01-21] MEDS ORDERED: PROPOFOL IV EMULSION 10 MG/ML 20 ML VIAL IV ONE ×2 (06:32→08:13)
[2022-01-21] MEDS ORDERED: LIDOCAINE 2% 20 MG/ML 5 ML SYR IV ONE (06:32)
[2022-01-21] MEDS ORDERED: fentaNYL citrate 100 MCG/2 ML VIAL ONE (06:33)
[2022-01-21] MEDS ORDERED: PROMETHAZINE HCL 6.25 MG in SODIUM CHLORIDE 0.9% 50 ML IV PRN (06:40)
[2022-01-21] MEDS ORDERED: ePHEDrine sulfate 50 MG/ML AMP IV PRN ×2 (06:40→09:18)
[2022-01-21] MEDS ORDERED: ATROPINE SULFATE 0.1 MG/ML 10ML SYR IV PRN (06:40)
[2022-01-21] MEDS ORDERED: ONDANSETRON INJ 2 MG/ML 2 ML VIAL IV PRN ×2 (06:40→10:13)
[2022-01-21] MEDS ORDERED: fentaNYL citrate 100 MCG/2 ML VIAL IV PRN (06:40)
[2022-01-21] MEDS ORDERED: MoRPHine SULFATE PF 1 MG/ML 10 ML AMP/VIAL ONE (06:44)
[2022-01-21] MEDS ORDERED: BUPIVACAINE LIPOSOME 1.3% 266 MG/20 ML VIAL ONE (06:48)
[2022-01-21] MEDS ORDERED: BUPIVACAINE/EPINEPHRINE 0.25% 1:200,000 30 ML VIAL ONE (06:48)
[2022-01-21] MEDS ORDERED: SODIUM CHLORIDE 0.9% PF 50 ML VIAL ONE (06:48)
[2022-01-21] MEDS ORDERED: EPINEPHrine INJ 1 MG/ML AMP ONE (06:51)
[2022-01-21] MEDS ORDERED: BUPIVACAINE 0.5 % 5 MG/1 ML MPF 30ML VIAL ONE (06:51)
--- NOTE | 2022-01-21 06:55 | History & Physical Bridge Note ---
Date of Service January 21, 2022 History & Physical Bridge Note I have examined the patient, reviewed the History & Physical and in the interval since the performance of the History & Physical I have noted the following changes of clinical significance: no changes noted
[2022-01-21] MEDS ORDERED: DEXAMETHASONE SOD INJ 4 MG/ML VIAL ONE (07:22)
[2022-01-21] MEDS ORDERED: ONDANSETRON INJ 2 MG/ML 2 ML VIAL ONE (07:22)
[2022-01-21] MEDS ORDERED: PHENYLEPHRINE HCL 10 MG/ML VIAL ONE (08:29)
[2022-01-21] MEDS ORDERED: ePHEDrine sulfate 50 MG/ML AMP ONE (08:29)
--- NOTE | 2022-01-21 08:55 | Operative Report ---
PG Post Operative Report Pre & Post Diagnosis Operation Date: 01/21/22 07:00 Pre-Op Diagnosis: Degenerative Joint Disease Right Hip Post-Op Diagnosis: Degenerative Joint Disease Right Hip I identified the patient and participated in the time-out.: Yes Procedure Operation Date: 01/21/22 07:00 Actual Procedures p Right Total Hip Arthroplasty(Right) - David Soriano MD Surgeon David Soriano MD Cyber Intelligence Analyst Quan Cotter PA-C Estimated Blood Loss 200 Findings Consistent with Post-Op Diagnosis Operative findings were advanced right hip DJD. She had grade 4 [id number] disease of the femoral head and acetabulum. She is some flattening eburnation of the femoral head. Small anterior acetabular osteophytes. Specimens Right femoral head sent for pathology Drains None Anesthesia Type Spinal MAC Complications none Disposition Accompanied Patient To Recovery: No Indications Patient is a 61-year-old female is had a several year history of gradual progressive increase right hip pain and discomfort. She also has a history of secondary back abnormalities and pain. She been through extensive conservative treatment for both areas. She continues to be debilitated by her hip and groin and thigh pain. She elected proceed with surgical treatment. She was fully aware this was [place] and treat her back issues. Description of Procedure Operative implants consist of: 1 Biomet G7 size 48 mm acetabular shell. 2. 6.5 cancellous acetabular screws 1 of 35 mm length and 1 of 25 mm length. 3. [place] hole restaurant assistant. 4. Highly cross-linked polyethylene liner with a 48 mm outer diameter 32 mm diameter. 5. DePuy Corail I size 9 KLA femoral stem. 6. +5/32 mm ceramic articular ball. The patient was taken the operating, identified, placed on the operating table supine position protectors were properly padded. IV antibiotics tried by anesthesia team. A spinal anesthetic had been provided in the holding area. Fragoso catheter was placed in sterile fashion. The patient then placed in the left lateral decubitus position. An axillary roll was placed. Stulberg hip positioner was used for positioning. The right hip and leg were then prepped and draped in usual sterile fashion. A posterior lateral approach of the right hip was then performed through a curvilinear incision centered over the greater trochanter. Sharp dissection scalp through subcutaneous is down low the IT band gluteal fascia the IT band gluteal fascia incised longitudinally in line with skin incision. The underlying greater bursa was excised. The piriformis and external rotators were tagged and taken off the posterior aspect hip joint capsule. Great care was taken throughout the procedure protect the sciatic nerve at all times. A posterior capsulotomy was then performed. Hip was internally rotated and dislocated. Femoral neck osteotomy cut was made with Final Cut about 10 mm above the lesser trochanter. Femoral head was removed and sent for pathology. The femur was retracted anteriorly. Attention drawn the acetabulum. The acetabular labrum was excised. The pulmonary fat was excised. Sequential reaming the acetabular was then performed begin with size 43 and progressing up to 47. We reamed a little bit with a 48 reamer and then placed a 48 mm acetabular shell in about 40 degrees lateral opening and 20 degrees of anteversion. Some small anterior osteophyte were removed. The acetabular was fixed with two 6.5 cancellous acetabular screws. Trial liner was placed. Attention drawn the femur. The proximal femur was entered with a [employer] cutter followed by canal finder. I then broached begin the size 8 and progressing to a 9. I trouble even getting a 9 down. She had a very tight fit. We then trialed the hip and the +5 articular ball seem to recreate leg lengths appropriate and was fully stable full extension and external rotation flexion to 90 degrees internal Tatian over [address] I elect to place these implants. Nupathe all trial implants were removed. An apex hole restaurant assistant was placed. Highly cross-linked polyethylene liner was placed. A size 9 KLA femoral stem was impacted in position. +5/32 mm ceramic articular ball was placed. Hip was located once again found to be stable. Attention drawn toward closing. The wounds irrigated scope soft pulsatile lavage solution. We did inject locally with 30 cc of half percent Marcaine with epinephrine. The posterior capsule and external rotators then repaired through drill holes in the posterior trochanter with #2 Tycron suture. The IT band gluteal fascia then closed in 1 PDS suture running fashion for subcutaneous tissues then closed with 2 layers of the deep layer #2 Vicryl suture and then the subcutaneous tissues 2-0 Dexon suture in a buried interrupted fashion. Skin was closed skin bonifacio. Leg was then cleaned and dried. A sterile Prevena VAC dressing was applied. The patient then transferred to the recovery room in stable condition. Patient tolerated procedure well and there were no complications. Quan Cotter, my physician assistant property manager, was present for the entire procedure. His assistance was essential and required for appropriate patient positioning, prepping and draping, surgical exposure, performing the technical details of the operation, placement the implants, closure of the wound, and placement of the sterile bandage. I attest to the content of the Intraoperative Record and any orders documented therein. Any exceptions are noted below.
[2022-01-21] MEDS ORDERED: MoRPHine SULFATE PF 1 MG/ML 10 ML AMP/VIAL INT SPINAL ONE (09:18)
[2022-01-21] MEDS ORDERED: NALOXONE HCL 0.08 MG in SYRINGE 1.8 ML IV PRN (09:18)
[2022-01-21] MEDS ORDERED: NALBUPHINE HCL INJ 10 MG/ML AMP IV PRN (09:18)
[2022-01-21] MEDS ORDERED: diphenhydrAMINE 50 MG/ML VIAL IV PRN (09:18)
[2022-01-21] MEDS ORDERED: LACTATED RINGER'S 500 ML IV PRN (09:18)
[2022-01-21] MEDS ORDERED: NALOXONE HCL 0.4 MG/1 ML VIAL/CARP IV PRN ×2 (09:18→10:13)
[2022-01-21] MEDS ORDERED: NALOXONE HCL 1 MG in SODIUM CHLORIDE 0.9% 1000ML 1,000 ML IV PRN (09:18)
[2022-01-21] MEDS ORDERED: NO NARCOTICS OR SEDATIVES SCH (09:30)
[2022-01-21] MEDS ORDERED: DC INTRASPINAL MORPHINE SCH (09:30)
[2022-01-21] MEDS ORDERED: SODIUM CHLORIDE 0.9% 1000ML 1,000 ML IV SCH (09:30)
--- NOTE | 2022-01-21 09:52 | Anesthesiology Progress Note ---
Date of Service January 21, 2022 Anesthesia Post Procedure Vital Signs Vital Signs: Temp Pulse Pulse Resp BP Pulse Ox O2 Del Method 01/21/22 09:50 87 14 132/84 98 Nasal Cannula 01/21/22 09:40 91 H 12 122/77 98 Nasal Cannula 01/21/22 09:30 97.5 F L 87 12 122/76 93 Room Air 01/21/22 09:20 91 H 14 133/90 92 Room Air 01/21/22 09:10 90 14 123/88 94 Room Air 01/21/22 09:00 92 H 14 127/80 98 Oxymask 01/21/22 08:50 100 H 14 127/76 99 Oxymask 01/21/22 08:44 96.8 F L 97 H 12 117/67 96 Oxymask 01/21/22 05:37 98.1 F 78 18 136/69 97 Room Air O2 Flow Rate 01/21/22 09:50 2 01/21/22 09:40 2 01/21/22 09:30 01/21/22 09:20 01/21/22 09:10 01/21/22 09:00 2 01/21/22 08:50 3 01/21/22 08:44 3 01/21/22 05:37 Transfer of Care Handoff Completed per policy Notes Mental Status: alert / awake / arousable and participated in evaluation Patient Amnestic to Procedure: Yes Nausea / Vomiting: adequately controlled Pain: adequately controlled Airway Patency, RR, SpO2: stable & adequate BP & HR: stable & adequate Hydration State: stable & adequate Neuraxial Anesthesia: was administered and sensory block is resolving Anesthetic Complications: no major complications apparent and Pt Satisfied with anesthetic care
--- NOTE | 2022-01-21 10:02 | XRay Report ---
XR hip 1V RT w pelvis CLINICAL HISTORY: IN PACU - A/P PELVIS and LATERAL HIP TECHNIQUE: 2 views of the right hip and single frontal view of the pelvis were obtained. Comparison: Comparison is made to CT abdomen pelvis 01/05/2019 FINDINGS: Patient is status post total hip arthroplasty with expected postsurgical changes including soft tissu e swelling and subcutaneous emphysema. No periarticular lucency or hardware fracture is seen. Degener ative changes are seen in the left hip. No soft tissue abnormality is seen. IMPRESSION: Expected postoperative appearance status post placement of total hip arthroplasty. ACT 112: Negative or not required by law. Electronically signed by: Paul Love M.D. 01/21/2022 10:00 AM
[2022-01-21] MEDS ORDERED: METOCLOPRAMIDE HCL INJ 5 MG/ML 2 ML VIAL IV PRN (10:13)
[2022-01-21] MEDS ORDERED: bisacodyL 10 MG SUPP PR PRN (10:13)
[2022-01-21] MEDS ORDERED: MAGNESIUM HYDROXIDE SUSP 30 ML UDC PO PRN (10:13)
[2022-01-21] MEDS ORDERED: APPLE CIDER VINEGAR 300 MG PO SCH (10:13)
[2022-01-21] MEDS ORDERED: NON-FORMULARY MEDICATION (Amino Acids Capsule) PO SCH (10:13)
[2022-01-21] MEDS ORDERED: DOCUSATE SODIUM/SENNA 50/8.6MG TAB PO SCH (10:13)
[2022-01-21] MEDS ORDERED: ALUMINUM/MAGNESIUM SUSP 30 ML UDC PO PRN (10:13)
[2022-01-21] MEDS ORDERED: NON-FORMULARY MEDICATION (Multivitamin Tablet) PO SCH (10:13)
[2022-01-21] MEDS ORDERED: ALBUTEROL HFA 8 GM INHALER INH PRN (10:58)
[2022-01-21] MEDS: SODIUM CHLORIDE 0.9% 1000ML 1,000 ML IV SCH ×2 (11:24→21:45)
[2022-01-21] MEDS ORDERED: FERROUS SULFATE 325 MG TAB PO SCH (11:30)
[2022-01-21] MEDS: ATORVASTATIN 40 MG TAB PO SCH (12:33)
[2022-01-21] MEDS: MULTIVITAMIN TAB PO SCH (12:33)
[2022-01-21] MEDS: CHOLECALCIFEROL 1,000 UNITS 25 MCG TAB PO SCH (12:33)
[2022-01-21] MEDS: ASPIRIN 81 MG ECTAB PO SCH ×2 (12:33→21:39)
[2022-01-21] MEDS: DOCUSATE SODIUM 100 MG CAP PO SCH ×2 (12:33→21:40)
[2022-01-21] MEDS: DULoxetine HCL 20 MG CAP PO SCH (12:33)
[2022-01-21] MEDS: KETOROLAC 30 MG/ML VIAL IV SCH ×3 (12:36→23:08)
[2022-01-21] MEDS: ACETAMINOPHEN 500 MG TAB PO SCH ×2 (14:06→21:38)
[2022-01-21] MEDS ORDERED: TRANEXAMIC ACID / 0.7% NACL 1,000 MG/100 ML BAG IV SCH (14:45)
[2022-01-21] MEDS: Scopolamine CHECK PATCH PLACEMENT SCH ×2 (16:39→23:09)
[2022-01-21] MEDS: ceFAZolin 2000MG 2,000 MG/15 ML SYR IV SCH ×2 (16:39→23:07)
[2022-01-21] MEDS: ASCORBIC ACID 500 MG TAB PO SCH (16:39)
[2022-01-21] MEDS: ALLERGY Noted to ORDERED Medication SCH (19:06)
[2022-01-21] MEDS ORDERED: SENNA 8.6 MG TAB PO SCH (21:00)
[2022-01-22] MEDS ORDERED: traMADol HCL 50 MG TABLET PO PRN (03:18)
[2022-01-22] MEDS ORDERED: HYDROmorphone INJ 0.5 MG/0.5 ML SYR IV PRN (03:18)
[2022-01-22] MEDS ORDERED: diphenhydrAMINE Capsule 25 MG CAP PO PRN (03:18)
[2022-01-22] MEDS: KETOROLAC 30 MG/ML VIAL IV SCH ×2 (05:59→12:38)
[2022-01-22] MEDS ORDERED: dexAMETHasone 10 MG in SYRINGE 0 ML IV SCH (08:00)
[2022-01-22 08:26] LABS: Basophils # (auto) 0.02 K/uL (0-0.2); Basophils % (auto) 0.1 %; Eosinophils # (auto) 0.01 K/uL (0-0.50); Eosinophils % (auto) 0.1 %; Hematocrit (blood only) 35.7 % (34.1-44.9); Hemoglobin 11.6 g/dl (12.0-16.0); Immature Granulocytes # (auto) 0.07 K/uL (0.00-0.02); Immature Granulocytes % (auto) 0.5 %; Lymphocytes # (auto) 2.07 K/uL (1.2-3.4); Lymphocytes % (auto) 13.9 %; Mean Corpuscular Hemoglobin 29.3 pg (25.0-34.0); Mean Corpuscular Hgb Conc 32.5 g/dL (32.0-36.0); Mean Corpuscular Volume 90.2 fL (80.0-100.0); Mean Platelet Volume 10.4 fL (9.4-12.3); Monocytes # (auto) 1.33 K/uL (0.24-0.82); Monocytes % (auto) 8.9 %; Neutrophils # (auto) 11.41 K/uL (1.4-6.5); Neutrophils % (auto) 76.5 %; Platelet Count 313 K/uL (130-400); RDW Coefficient of Variation 12.4 % (11.5-14.5); RDW Standard Deviation 41.2 fL (36.4-46.3); Red Blood Count 3.96 M/uL (3.93-5.22); White Blood Count 14.91 K/ul (4.8-10.8)
[2022-01-22 08:31] VITALS: PULSE 79; O2SAT 98
[2022-01-22 08:51] LABS: BUN Creatinine Ratio 13.3 (10-20); Calcium 8.9 mg/dl (8.5-10.1); Creatinine Clr Calc Pharmacy 76.1 ml/min; Est GFR (African American) 87.6 ml/min; Est GFR (Non-African American) 75.6 ml/min; Potassium 4.5 mmol/L (3.5-5.1)
[2022-01-22] MEDS: Scopolamine CHECK PATCH PLACEMENT SCH (09:49)
[2022-01-22] MEDS: GABAPENTIN 100 MG CAP PO SCH ×2 (09:50→13:19)
[2022-01-22] MEDS: ASCORBIC ACID 500 MG TAB PO SCH (09:50)
[2022-01-22] MEDS: DULoxetine HCL 20 MG CAP PO SCH (09:50)
[2022-01-22] MEDS: MULTIVITAMIN TAB PO SCH (09:50)
[2022-01-22] MEDS: CHOLECALCIFEROL 1,000 UNITS 25 MCG TAB PO SCH (09:50)
[2022-01-22] MEDS: ASPIRIN 81 MG ECTAB PO SCH (09:51)
[2022-01-22] MEDS: ACETAMINOPHEN 500 MG TAB PO SCH ×2 (09:51→13:19)
[2022-01-22] MEDS: DOCUSATE SODIUM 100 MG CAP PO SCH (09:51)
[2022-01-22] MEDS: ATORVASTATIN 40 MG TAB PO SCH (09:51)
--- NOTE | 2022-01-22 10:09 | Progress Notes ---
DATE OF SERVICE: 01/22/2022 SUBJECTIVE: A 61-year-old female postoperative day 1 from right hip replacement. She is doing prett y well. Pain is controlled. Says just muscle soreness more than anything. No chest pain or shortne ss of breath. Not feeling dizzy or lightheaded. OBJECTIVE: VITAL SIGNS: Temperature is 36.8. Vital signs are stable. PHYSICAL EXAMINATION: GENERAL: Shows a pleasant middle-aged female. She is sitting up in her bedside chair, looks comfort able. EXTREMITIES: Examination of the right leg reveals the leg to be well aligned. Leg lengths appear eq ual. Thigh is soft and supple. She is neurologically intact. LABORATORY DATA: Hemoglobin 11.6. Hematocrit 35.7. Electrolytes are stable. ASSESSMENT: A 61-year-old female postoperative day 1 from right hip replacement, doing well. Pain i s controlled. Hip is located. She is neurologically intact. PLAN: 1. DVT prophylaxis includes thigh-high TEDs, SCDs, and aspirin twice a day. 2. PT, OT, weightbear as tolerated. Right total hip protocol. 3. Pain control, doing okay with current pain regimen. 4. Disposition: Plan to discharge to home with some home health later today if she does okay in the rapy. Job ID: [id number]
[2022-01-22 13:25] VITALS: BP 125/78; TEMP 98.6
--- NOTE | 2022-01-28 10:01 | Discharge Summary ---
Date of Service January 28, 2022 Discharge Data Procedures Performed Operation Date: 01/21/22 07:00 Actual Procedures p Right Total Hip Arthroplasty(Right) - David Soriano MD Hospital Course (1) S/P total right hip arthroplasty: This is a 61 year old patient admitted on 01/21/22 and underwent total hip arthroplasty. She tolerated the procedure well and there were no complications. Transferred to the PACU post op and later to the orthopedic floor for further care. She was given ancef for antibiotic prophylaxis. She was also given AURY stockings, SCDs, and aspirin for DVT prophylaxis. Hemoglobin, hematocrit, and vital signs were monitored during her hospital stay and remained stable. Did not require any blood transfusions. There were no complications during her hospital stay. By post op day #1 the patient was tolerating a regular diet, pain was reasonably controlled with oral pain medicine, and she was participating in physical therapy. On post op day #1 the patient was discharged home and set up with home health care. She was given printed discharge instructions including prescriptions for extra strength tylenol, aspirin, toradol, zofran, senokot, and tramadol. Continue physical therapy, weight bearing as tolerated. Continue hip precautions. Continue AURY stockings. Follow up approximately 2 weeks post op or sooner if there are problems or concerns. Coding Level of Care Code None Diagnoses S/P total right hip arthroplasty Z96.641
== END 2022-01-22 14:06 | disposition home health service (06) ==
LOC: 3E 05:03 → ASU 05:03
DX: Z88.8 Allergy status to other drugs, medicaments and biological substances; Z79.82 Long term (current) use of aspirin; Z79.51 Long term (current) use of inhaled steroids; Z88.0 Allergy status to penicillin; Z88.2 Allergy status to sulfonamides; M16.11 Unilateral primary osteoarthritis, right hip

== ENCOUNTER 2022-08-27 13:40 | Inpatient (IN) ==
[2022-08-27] MEDS ORDERED: ALBUT/IPRATROP 3MG/0.5MG NEB 3 ML VIAL NEB STA (13:51)
--- NOTE | 2022-08-27 13:51 | ED Triage Note ---
Date of Service August 27, 2022 History of Present Illness This patient was briefly evaluated while in triage. An abbreviated physical exam was performed. This patient is a 62-year-old Female, history of asthma, who presents to the ED for evaluation of dizziness, chest pain, cough and shortness of breath. Coughing and chest pain started this past (5 days ago). The patient denies any known heart history. The patient reports that her albuterol inhaler has not been working. Patient does not wear oxygen at home. Patient denies any known sick contacts. The patient did have her COVID-19 vaccinations, but no influenza vaccination. Patient rates her discomfort a 3 out of 10. Physical Exam CONSTITUTIONAL: Healthy and well nourished. HEENT: Normocephalic, atraumatic. No subconjunctival hemorrhage LYMPHATICS: No cervical chain adenopathy. RESPIRATORY: Patient has diffuse expiratory wheezing without crackles, rhonchi or stridor. CARDIOVASCULAR: Regular rate and rhythm with no murmurs, rubs or gallops. GASTROINTESTINAL: Bowel sounds present in all quadrants. INTEGUMENTARY: No rash or other significant dermatologic conditions noted. HEMATOLOGIC: No ecchymosis or petechiae. PSYCHIATRIC: Positive affect. NEUROLOGIC: No focal neurologic deficits noted. Initial orders for labs and / or imaging were placed and patient was placed in the waiting area until a bed is available. Please see further documentation for the full ED course.
[2022-08-27] MEDS ORDERED: ALBUT/IPRATROP 3MG/0.5MG NEB 3 ML VIAL NEB ONE (14:16)
[2022-08-27] MEDS ORDERED: methylPREDNISolone 125 MG/2 ML VIAL IV STA (14:16)
[2022-08-27] MEDS: SODIUM CHLORIDE 0.9% 1000ML 1,000 ML IV STA ×2 (14:17→14:38)
--- NOTE | 2022-08-27 14:17 | Emergency Department Note ---
History of Present Illness General Chief Complaint: Shortness of Breath/Dyspnea Stated Complaint: SOB, TIGHTNESS IN CHEST, COUGH Time Seen by Provider: 08/27/22 13:55 History of Present Illness Provider Complaint: shortness of breath and "asthma attack" Onset (ago): day(s) (5) Severity: severe Consistency/Duration: + progressively worsening Relieved By: + nothing Exacerbated By: + exertion and + coughing Context: no medication noncompliance, no allergen exposure or no trauma/injury Known history of: asthma Associated symptoms: + chest pain, + cough, + wheezing, + sputum production and + chest congestion; no palpitations, no hemoptysis or no abdominal pain HPI Narrative: History of ICU admission for her asthma no history of intubation. Home Medications Medication Instructions Recorded Confirmed Type atorvastatin 40 mg tablet (Lipitor) 40 mg PO QAM 01/05/19 08/27/22 History cholecalciferol (vitamin D3) 50 2,000 unit PO QAM 01/05/19 08/27/22 History mcg (2,000 unit) tablet (Vitamin D3) multivitamin 1 tab PO QAM 01/05/19 08/27/22 History ferrous sulfate 325 mg (65 mg 325 mg PO Q OTHER DAY 02/11/20 08/27/22 History iron) tablet (iron) apple cider vinegar 300 mg tablet 600 mg PO QAM 01/03/22 08/27/22 History aspirin 81 mg tablet,delayed 81 mg PO DAILY 08/27/22 08/27/22 History release (Chandana Low Dose Aspirin) duloxetine 60 mg capsule,delayed 60 mg PO QAM 08/27/22 08/27/22 History release hydroxyzine HCl 25 mg tablet 25 mg PO Q6 PRN Anxiety 08/27/22 08/27/22 History Allergies Allergy/AdvReac Type Severity Reaction Status Date / Time isopropyl alcohol Allergy Unknown Rash, Verified 01/10/22 11:37 hives (Please use iodine per Dr. Joaquin Jolly) Penicillins Allergy Unknown Hives Verified 01/04/22 08:47 dichloralphenazone AdvReac Mild GI bleed Verified 01/04/22 08:47 isometheptene AdvReac Mild GI Bleed Verified 01/04/22 08:47 Sulfa (Sulfonamide AdvReac Mild GI upset Verified 01/04/22 08:47 Antibiotics) aspirin AdvReac Unknown GI upset Verified 01/04/22 08:47 ibuprofen AdvReac Unknown Vaginal Verified 01/04/22 08:47 spotting, GI bleed Past Med/Surg History Medical History (Updated 08/27/22 @ 19:20 by Leonardo Garcia) Anxiety Asthma Well controlled Degenerative joint disease of right hip Encounter for pre-operative examination GERD (gastroesophageal reflux disease) Diet controlled History of COVID-19 Dx 07/2021 Symptoms at time: fatigue, weakness, bronchitis > resolved HLD (hyperlipidemia) Major depressive disorder, recurrent severe without psychotic features Obesity Sleep apnea No device (Previously used CPAP, did not tolerate device) SOB (shortness of breath) Surgical History History of bilateral tubal ligation History of cataract surgery right/left History of colonoscopy S/P arthroscopic knee surgery left S/P laparotomy after ectopic Arnold teeth extracted Social History Smoking Status: Former smoker Second Hand Exposure: No; Hx Alcohol Use: No Hx Substance Use: No Preferred Language: Icelandic Communication Ability: Effective Inside Sales Executive Required: No Beliefs That Will Affect Care: None Current Living Situation: Family Current Living Situation Comment: lives daughter and son Feels Safe at Home: Yes Assistive Devices: Walker Physical Exam Vital Signs: Vital Signs - 24 hr 08/27/22 13:49 08/27/22 13:49 08/27/22 14:36 Temperature 36.9 C Temperature Source Oral Pulse Rate 93 H Pulse Rate [Apical ] 72 Pulse Rate from Sp O2 Sensor Pulse Rhythm Regular Pulse Strength Normal Respiratory Rate 30 H 14 Respiratory Effort / Characteristics Spontaneous Access ory Muscle Use Yvonne rt of Breath SOB o n Exertion Spontaneous Access ory Muscle Use Yvonne rt of Breath SOB o n Exertion Non-Labored Sponta neous Respiratory Depth Retractive Retractive Respiratory Patter n Tachypnea Tachypnea Blood Pressure 133/72 Blood Pressure [Ri ght Arm] Blood Pressure Carrol n 92 Blood Pressure Carrol n [Right Arm] Blood Pressure Pos ition Sitting Blood Pressure Pos ition [Right Arm] Pulse Oximetry 97 100 Oxygen Delivery Me thod Room Air Room Air Sepsis Recent Feve r Within 48 Hours No Sepsis New/Unexpla ined Change in Men glenis Status No Sepsis Action Take n by Nursing No Action Required 08/27/22 14:35 08/27/22 14:36 08/27/22 14:37 Temperature Temperature Source Pulse Rate Pulse Rate [Apical ] 69 Pulse Rate from Sp O2 Sensor Pulse Rhythm Pulse Strength Respiratory Rate 26 H Respiratory Effort / Characteristics Respiratory Depth Respiratory Patter n Blood Pressure Blood Pressure [Ri ght Arm] 108/62 Blood Pressure Carrol n Blood Pressure Carrol n [Right Arm] 77 Blood Pressure Pos ition Blood Pressure Pos ition [Right Arm] Sitting Pulse Oximetry 99 98 Oxygen Delivery Me thod Room Air Room Air Room Air Sepsis Recent Feve r Within 48 Hours Sepsis New/Unexpla ined Change in Men glenis Status Sepsis Action Take n by Nursing 08/27/22 15:00 08/27/22 14:44 08/27/22 15:00 Temperature Temperature Source Pulse Rate 73 70 74 Pulse Rate [Apical ] Pulse Rate from Sp O2 Sensor 71 74 Pulse Rhythm Pulse Strength Respiratory Rate 14 15 Respiratory Effort / Characteristics Respiratory Depth Respiratory Patter n Blood Pressure 118/68 Blood Pressure [Ri ght Arm] Blood Pressure Carrol n 84 Blood Pressure Carrol n [Right Arm] Blood Pressure Pos ition Blood Pressure Pos ition [Right Arm] Pulse Oximetry 100 100 100 Oxygen Delivery Me thod Room Air Sepsis Recent Feve r Within 48 Hours Sepsis New/Unexpla ined Change in Men glenis Status Sepsis Action Take n by Nursing 08/27/22 15:01 08/27/22 15:01 08/27/22 15:30 Temperature Temperature Source Pulse Rate 70 Pulse Rate [Apical ] Pulse Rate from Sp O2 Sensor 72 Pulse Rhythm Pulse Strength Respiratory Rate 16 Respiratory Effort / Characteristics Respiratory Depth Respiratory Patter n Blood Pressure 118/68 129/59 L Blood Pressure [Ri ght Arm] Blood Pressure Carrol n 84 82 Blood Pressure Carrol n [Right Arm] Blood Pressure Pos ition Blood Pressure Pos ition [Right Arm] Pulse Oximetry 100 Oxygen Delivery Me thod Sepsis Recent Feve r Within 48 Hours Sepsis New/Unexpla ined Change in Men glenis Status Sepsis Action Take n by Nursing 08/27/22 15:30 Temperature Temperature Source Pulse Rate 83 Pulse Rate [Apical ] Pulse Rate from Sp O2 Sensor 84 Pulse Rhythm Pulse Strength Respiratory Rate 18 Respiratory Effort / Characteristics Respiratory Depth Respiratory Patter n Blood Pressure Blood Pressure [Ri ght Arm] Blood Pressure Carrol n Blood Pressure Carrol n [Right Arm] Blood Pressure Pos ition Blood Pressure Pos ition [Right Arm] Pulse Oximetry 100 Oxygen Delivery Me thod Sepsis Recent Feve r Within 48 Hours Sepsis New/Unexpla ined Change in Men glenis Status Sepsis Action Take n by Nursing Physical Exam: Physical Exam HENT: Exam performed. - Head: Normocephalic and atraumatic. EYES: Conjunctivae and EOM are normal. Right eye exhibits no discharge. Left eye exhibits no discharge. No scleral icterus. NECK: Normal range of motion. Neck supple. No JVD present. CV: Normal rate, regular rhythm, normal heart sounds and intact distal pulses. There is no peripheral edema. Palpable radial pulses bue. PULM/CHEST: Tachypneic. Diffuse expiratory wheezes bilaterally. ABD: The abdomen is soft. There is no tenderness. NEURO: Motor and sensation grossly intact. SKIN: Skin is warm and dry. He is not diaphoretic. PSYCH: normal mood and affect. Behavior is normal. Judgment and thought content normal. Course Course 1355: The patient was evaluated in room C3. A complete history and physical exam was performed Cardiac monitoring: An order was placed for continuous cardiac monitoring. The monitor shows a rate of 80 with sinus rhythm interpreted by me 1615: Vital signs stable. Breathing improved status post hour-long DuoNeb. Wheezing is improved. Given the patient's history of ICU admission for asthma patient will be admitted for status asthmaticus. Discussed the case with the [facility] hospitalist will admit the patient. Labs are within normal limits except for a D-dimer that was ordered in triage. Given patient's elevated D- dimer CTA of the chest will be completed. Hospitalist team will follow-up on this. 1914: Vital signs stable. CTA of the chest showed no PE but does show possible developing pneumonia. Patient be treated with Rocephin and azithromycin for CAP. Administered Medications Discontinued Medications Albuterol (Albut/Ipratrop 3mg/0.5mg Neb 3 Ml Vial) 3 ml NEB NOW STA; Protocol Stop: 08/27/22 13:52 Last Admin: 08/27/22 14:53 Dose: Not Given Documented By: LOLA Albuterol (Albut/Ipratrop 3mg/0.5mg Neb 3 Ml Vial) 12 ml NEB ONE ONE; Protocol Stop: 08/27/22 14:17 Last Admin: 08/27/22 14:34 Dose: 12 ml Documented By: SHERI Sodium Chloride (Nss 1000ml) 1,000 mls @ 999 mls/hr IV .Q1H1M STA Stop: 08/27/22 14:51 Last Admin: 08/27/22 14:38 Dose: Not Given Documented By: LOLA Methylprednisolone (Methylprednisolone 125 Mg/2 Ml Vial) 125 mg IV NOW STA Stop: 08/27/22 14:17 Last Admin: 08/27/22 14:54 Dose: 125 mg Documented By: LOLA Medical Decision Making Laboratory Data Attestation: I reviewed the patient's lab results. 08/27/22 14:00 08/27/22 14:00 Lab Results 08/27/22 08/27/22 08/27/22 Range/Units 14:00 14:00 14:00 WBC 5.52 (4.8-10.8) K/ul RBC 5.26 (4.20-5.40) M/uL Hgb 15.0 (12.0-16.0) g/dl Hct 45.4 (37.0-47.0) % MCV 86.3 (80.0-100.0) fL MCH 28.5 (25.0-34.0) pg MCHC 33.0 (32.0-36.0) g/dL RDW Std Deviation 39.8 (36.4-46.3) fL RDW Coeff of Suzie 12.7 (11.5-14.5) % Plt Count 294 (130-400) K/uL MPV 9.8 (9.4-12.4) fL Immature Gran % (Auto) 0.2 % Neut % (Auto) 41.8 % Lymph % (Auto) 44.2 % [place] % (Auto) 8.2 % Eos % (Auto) 4.9 % Baso % (Auto) 0.7 % Neut # (Auto) 2.31 (1.40-6.50) K/uL Lymph # (Auto) 2.44 (1.2-3.4) K/uL [place] # (Auto) 0.45 (0.11-0.59) K/uL Eos # (Auto) 0.27 (0-0.50) K/uL Baso # (Auto) 0.04 (0-0.2) K/uL Immature Gran # (Auto) 0.01 (0.01-0.20) K/uL PT 10.5 (9.0-12.0) Seconds INR 1.0 (0.9-1.1) APTT 25.7 (21.0-31.0) Seconds PTT Ratio 0.9 D-Dimer 870 H* (0-500) ug/L FEU VBG pH (7.36-7.41) VBG pCO2 (38-50) mmHg VBG pO2 mmHg VBG HCO3 mmol/L VBG O2 Saturation % VBG Base Excess mEq/L Sodium 140 (136-145) mmol/L Potassium 4.6 (3.5-5.1) mmol/L Chloride 104 (98-107) mmol/L Carbon Dioxide 29 (21-32) mmol/L Anion Gap 7 (3-11) BUN 13 (6-23) mg/dl Creatinine 0.90 (0.6-1.2) mg/dl Est Cr Clr Drug Dosing 66.5 ml/min Est GFR ( Amer) 78.9 ml/min Est GFR (Non-Af Amer) 68.0 ml/min BUN/Creatinine Ratio 14.4 (10-20) Glucose 96 (70-99(Fasting)) mg/dl Calcium 10.1 (8.6-10.3) mg/dl Total Bilirubin 0.7 (0.2-1.0) mg/dl AST 21 (13-39) U/L ALT 13 (7-52) U/L Alkaline Phosphatase 118 H (34-104) U/L Troponin I High Sens 3.2 (0-14) pg/ml B-Natriuretic Peptide (0-100) pg/ml Total Protein 7.2 (6.0-8.3) gm/dl Albumin 4.1 (3.4-5.0) gm/dl Globulin 3.1 (2.5-4.0) gm/dl Albumin/Globulin Ratio 1.3 (0.9-2) Lipase 27 (11-82) U/L SARS-CoV-2 (PCR) (Negative) Influenza Type A (PCR) (Neg) Influenza Type B (PCR) (Neg) RSV (RT-PCR) (Neg) 08/27/22 08/27/22 08/27/22 Range/Units 14:00 14:27 14:27 WBC (4.8-10.8) K/ul RBC (4.20-5.40) M/uL Hgb (12.0-16.0) g/dl Hct (37.0-47.0) % MCV (80.0-100.0) fL MCH (25.0-34.0) pg MCHC (32.0-36.0) g/dL RDW Std Deviation (36.4-46.3) fL RDW Coeff of Suzie (11.5-14.5) % Plt Count (130-400) K/uL MPV (9.4-12.4) fL Immature Gran % (Auto) % Neut % (Auto) % Lymph % (Auto) % [place] % (Auto) % Eos % (Auto) % Baso % (Auto) % Neut # (Auto) (1.40-6.50) K/uL Lymph # (Auto) (1.2-3.4) K/uL [place] # (Auto) (0.11-0.59) K/uL Eos # (Auto) (0-0.50) K/uL Baso # (Auto) (0-0.2) K/uL Immature Gran # (Auto) (0.01-0.20) K/uL PT (9.0-12.0) Seconds INR (0.9-1.1) APTT (21.0-31.0) Seconds PTT Ratio D-Dimer (0-500) ug/L FEU VBG pH 7.39 (7.36-7.41) VBG pCO2 53 H (38-50) mmHg VBG pO2 29 mmHg VBG HCO3 32 mmol/L VBG O2 Saturation < 60.0 % VBG Base Excess 5.7 mEq/L Sodium (136-145) mmol/L Potassium (3.5-5.1) mmol/L Chloride (98-107) mmol/L Carbon Dioxide (21-32) mmol/L Anion Gap (3-11) BUN (6-23) mg/dl Creatinine (0.6-1.2) mg/dl Est Cr Clr Drug Dosing ml/min Est GFR ( Amer) ml/min Est GFR (Non-Af Amer) ml/min BUN/Creatinine Ratio (10-20) Glucose (70-99(Fasting)) mg/dl Calcium (8.6-10.3) mg/dl Total Bilirubin (0.2-1.0) mg/dl AST (13-39) U/L ALT (7-52) U/L Alkaline Phosphatase (34-104) U/L Troponin I High Sens (0-14) pg/ml B-Natriuretic Peptide 11 (0-100) pg/ml Total Protein (6.0-8.3) gm/dl Albumin (3.4-5.0) gm/dl Globulin (2.5-4.0) gm/dl Albumin/Globulin Ratio (0.9-2) Lipase (11-82) U/L SARS-CoV-2 (PCR) NEGATIVE (Negative) Influenza Type A (PCR) Negative (Neg) Influenza Type B (PCR) Negative (Neg) RSV (RT-PCR) Negative (Neg) Imaging Data Attestation: I personally reviewed and interpreted this imaging study as fo llows: My Impression: Chest x-ray negative. Airway clear. No pneumothorax. No consolidation. No cardiomegaly or cephalization.. No free air under the diaphragm. No fractures of the skeletal structures. Radiologist's Impression: Chest X-Ray 08/27/22 13:51 XR chest 1V portable HISTORY: 62 years-old Female Chest pain, nonspecific COMPARISON: 07/26/2021 TECHNIQUE: AP view of the chest FINDINGS: Cardiac mediastinal and hilar silhouettes are within normal limits. There are a few ill-defined subtle opacity is noted throughout the left midlung. No pneumothorax or pleural effusion. Degenerative changes of the shoulders and spine. IMPRESSION: Subtle ill-defined left midlung opacities may be secondary to summation density versus developing airspace disease. ACT 112: Negative or not required by law. The above report was generated using voice recognition software. It may contain grammatical, syntax or spelling errors. Electronically signed by: Jayden Bailey M.D. 08/27/2022 2:[address] ANGIOGRAM OF THE CHEST CLINICAL HISTORY: Atypical chest pain. COMPARISON STUDY: Chest x-ray dated 08/27/2022. Chest CT dated 07/26/2021. TECHNIQUE: Following the IV administration of 109 cc of Optiray 320, CT angiogram of the chest was performed from the upper abdomen to the thoracic inlet utilizing the pulmonary embolus protocol. Images are reviewed in the axial, sagittal, and coronal planes. 3-D MIPS images are created and assessed. IV contrast was administered without complication. A dose lowering technique was utilized adhering to the principles of ALARA. The examination is compromised by motion artifact. CT DOSE: 1005.28 mGy.cm FINDINGS: Thyroid: Imaged portions of the thyroid gland are normal in size and attenuation. Thoracic aorta: The thoracic aorta is normal in caliber and demonstrates bovine variant arch anatomy. No dissection is seen. Pulmonary vasculature: The pulmonary trunk is normal in caliber. There are no filling defects identified in main, lobar, or segmental pulmonary branches to suggest pulmonary embolus. Heart: The heart is normal in size and without pericardial effusion. Lungs and pleural spaces: Evaluation of the lung parenchyma is degraded by motion artifact. There is patchy airspace consolidation seen in the left upper lobe and lingula. Scarring/atelectasis is noted at both lung bases. No pleural effusion is identified. The trachea and central airways are clear. Mediastinum: Prominent mediastinal lymph nodes measure up to 8 mm in short axis. These are likely reactive. Tessie: Clear. Axillae: There is no axillary lymphadenopathy. Upper abdomen: Partially visualized upper abdominal viscera is within normal limits. Skeletal structures: The skeletal structures are osteopenic. No lytic or blastic bony lesions are seen. Degenerative change and mild hyperkyphosis is noted in the thoracic spine. Arthritic change is seen in the shoulders. IMPRESSION: 1. There is no evidence of pulmonary embolus in the main, lobar, or segmental pulmonary arteries. 2. Patchy airspace consolidation in the left upper lobe and lingula is typical for pneumonia. Clinical correlation will be required and radiographic follow-up to resolution is recommended. 3. No pleural effusion is identified. 4. Additional findings as above. ACT 112: Negative or not required by law. Electronically signed by: Salo Jackson M.D. 08/27/2022 5:52 PM Dictated:[id number]/[id number] Transcribed: [id number]/27/[id number] ECG Data Attestation: I personally reviewed and interpreted this ECG as follows: Interpretation: Sinus rhythm with a rate of 84. IN 134 QRS [address] elevation or ST depression. [facility] Narrative 1355: The patient was evaluated in room C3. A complete history and physical exam was performed Cardiac monitoring: An order was placed for continuous cardiac monitoring. The monitor shows a rate of 80 with sinus rhythm interpreted by me 1615: Vital signs stable. Breathing improved status post hour-long DuoNeb. Wheezing is improved. Given the patient's history of ICU admission for asthma patient will be admitted for status asthmaticus. Discussed the case with the [facility] hospitalist will admit the patient. Labs are within normal limits except for a D-dimer that was ordered in triage. Given patient's elevated D- dimer CTA of the chest will be completed. Hospitalist team will follow-up on this. 1914: Vital signs stable. CTA of the chest showed no PE but does show possible developing pneumonia. Patient be treated with Rocephin and azithromycin for CAP. Impression & Plan Asthmaticus, status, Pneumonia Discharge Plan Visit Data Chief Complaint: Shortness of Breath/Dyspnea Stated Complaint: SOB, TIGHTNESS IN CHEST, COUGH ED Provider: Leonardo Garcia Discharge Problem: Asthmaticus, status, Pneumonia Patient Disposition: Admitted As Inpatient Discharge Instructions Interventions: ED Discharge Assessment Last Done: 08/27/22 18:32
--- NOTE | 2022-08-27 14:24 | XRay Report ---
XR chest 1V portable HISTORY: 62 years-old Female Chest pain, nonspecific COMPARISON: 07/26/2021 TECHNIQUE: AP view of the chest FINDINGS: Cardiac mediastinal and hilar silhouettes are within normal limits. There are a few ill-defined subtl e opacity is noted throughout the left midlung. No pneumothorax or pleural effusion. Degenerative reinaldo nges of the shoulders and spine. IMPRESSION: Subtle ill-defined left midlung opacities may be secondary to summation density versus de veloping airspace disease. ACT 112: Negative or not required by law. The above report was generated using voice recognition software. It may contain grammatical, syntax o r spelling errors. Electronically signed by: Jayden Bailey M.D. 08/27/2022 2:23 PM
[2022-08-27 14:35] LABS: Basophils # (auto) 0.04 K/uL (0-0.2); Basophils % (auto) 0.7 %; Eosinophils # (auto) 0.27 K/uL (0-0.50); Eosinophils % (auto) 4.9 %; Hematocrit (blood only) 45.4 % (37.0-47.0); Immature Granulocytes # (auto) 0.01 K/uL (0.01-0.20); Immature Granulocytes % (auto) 0.2 %; Lymphocytes # (auto) 2.44 K/uL (1.2-3.4); Lymphocytes % (auto) 44.2 %; Mean Corpuscular Hemoglobin 28.5 pg (25.0-34.0); Mean Corpuscular Volume 86.3 fL (80.0-100.0); Mean Platelet Volume 9.8 fL (9.4-12.4); Monocytes # (auto) 0.45 K/uL (0.11-0.59); Monocytes % (auto) 8.2 %; Neutrophils # (auto) 2.31 K/uL (1.40-6.50); Neutrophils % (auto) 41.8 %; Platelet Count 294 K/uL (130-400); RDW Coefficient of Variation 12.7 % (11.5-14.5); RDW Standard Deviation 39.8 fL (36.4-46.3); Red Blood Count 5.26 M/uL (4.20-5.40); White Blood Count 5.52 K/ul (4.8-10.8)
[2022-08-27 14:36] LABS: Base Excess VBG 5.7 mEq/L; HCO3 VBG 32 mmol/L; Oxygen Saturation VBG < 60.0 %; PCO2 VBG 53 mmHg (38-50); PO2 VBG 29 mmHg; pH VBG 7.39 (7.36-7.41)
[2022-08-27 14:46] LABS: Partial Thromboplastin Ratio 0.9; Partial Thromboplastin Time 25.7 Seconds (21.0-31.0); Prothrombin Time 10.5 Seconds (9.0-12.0)
[2022-08-27 15:01] LABS: Potassium 4.6 mmol/L (3.5-5.1)
[2022-08-27 15:02] LABS: Albumin Globulin Ratio 1.3 (0.9-2); Albumin Level 4.1 gm/dl (3.4-5.0); BUN Creatinine Ratio 14.4 (10-20); Bilirubin,Total 0.7 mg/dl (0.2-1.0); Calcium 10.1 mg/dl (8.6-10.3); Creatinine Clr Calc Pharmacy 66.5 ml/min; Est GFR (African American) 78.9 ml/min; Globulin 3.1 gm/dl (2.5-4.0); Total Protein 7.2 gm/dl (6.0-8.3)
[2022-08-27 15:08] LABS: Troponin I High Sensitivity 3.2 pg/ml (0-14)
[2022-08-27 15:30] LABS: Influenza A virus by PCR Negative (Neg); Influenza B virus by PCR Negative (Neg); RSV by PCR Negative (Neg); SARS CoV2 RNA(COVID-19) Ceph NEGATIVE (Negative)
[2022-08-27 15:53] LABS: D Dimer 870 ug/L FEU (0-500)
--- NOTE | 2022-08-27 16:20 | History & Physical Report ---
Date of Service August 27, 2022 Assessment & Plan (1) Asthma exacerbation: (2) SOB (shortness of breath): (3) Depression: (4) GERD (gastroesophageal reflux disease): (5) HLD (hyperlipidemia): Plan 62 y/o with acute asthma exacerbation. Responding well to nebulizer tx and IV steroids. Additional PMH includes HLD, depression, MDD and history of DERIK (no cpap). Asthma Exacerbation: SOB: Has required ICU admission in the past from asthma exacerbation CXR: Subtle ill-defined left midlung opacities may be secondary to summation density versus developing airspace disease; repeat CXR in AM No leukocytosis or overt signs of toxicity WBC 5.52 D-dimer incidental finding 870; CTA pending, Do not anticipate PE VBG: pH 7.39, PCO2 53, HCO3 32; compensated respiratory alkalosis In ED he received albuterol 12 mL for 1 hour neb treatment; will continue QID a nd Q 2 PRN Will start Flovent 1 puff inhaled BID Received Methylprednisone 125 mg in ED; continue methylprednisone 60 mg IV TID consider outpatient pulm referral; inpatient if no improvements Last PFT's 2012 negative for COVID, RSV and Flu Depression: Takes Cymbalta; continue HLD: -Takes Atorvastatin; continue -Lipid panel: 08/15/22: TG 247, HDL 33, LDL 112 Disposition: PCP: Dr. Rebolledo Code Status: Full Code VTE Prophylaxis: Lovenox SQ I spent a total of 86 minutes coordinating, documenting, and providing care for this patient excluding time spent in the performance of separately billed services. All of the aforementioned completed while collaborating with the assigned attending physician for a full treatment plan. Please see their addendum for further details. History of Present Illness Chief Complaint: SOB Primary Care Provider: Ashkan Rebolledo MD Ms. Dumont is a 62 year old female that presented to the ED today with SOB. She has a history of asthma exacerbation. She states that her symptoms started on where she felt that she had dyspnea on exertion and became more wheezy. She lives at home with her adult son who has been ill with a respiratory virus but she denies any cough or congestion. In the ED she received an hour long nebulizer treatment along with IV steroid administration. D-Dimer was ordered in ED and elevated at 870, suspect related to exacerbation; pending Chest CTA review. VBG results pH 7.39, CO2 53, HCO3 32; compensated respiratory alkalosis. Otherwise, lab work up unremarkable. Patient has a PMH that includes: asthma, depression, HLD, MDD, DERIK (not on CPAP), and GERD. While patient has medical history of asthma, does not take any routine medications. On examination, patient is AAOx3, able to move air without difficulty, some noted anterior and posterior expiratory wheezes, no cough, no pulsus paradoxus, symmetrical breathing and breath sounds, no accessory muscle use. Patient states that she has seen pulmonary as an outpatient years ago, Dr. Caldera?. She reports being hospitalized about a year ago but did not offer that this was related to asthma. She does not take any routine medications for asthma. I did observe her ambulate without difficulty to the bathroom. Patient denies headache, dizziness, visual changes, auditory changes, chest tightness, palpitations, N/V/D, recent falls or trauma. Pt denies tobacco, alcohol or recreational drug use. Patient will be admitted for further evaluation and management. Please see A/P for further details. Allergies Allergy/AdvReac Type Severity Reaction Status Date / Time isopropyl alcohol Allergy Unknown Rash, Verified 01/10/22 11:37 hives (Please use iodine per Dr. Joaquin Jolly) Penicillins Allergy Unknown Hives Verified 01/04/22 08:47 dichloralphenazone AdvReac Mild GI bleed Verified 01/04/22 08:47 isometheptene AdvReac Mild GI Bleed Verified 01/04/22 08:47 Sulfa (Sulfonamide AdvReac Mild GI upset Verified 01/04/22 08:47 Antibiotics) aspirin AdvReac Unknown GI upset Verified 01/04/22 08:47 ibuprofen AdvReac Unknown Vaginal Verified 01/04/22 08:47 spotting, GI bleed Home Medications Medication Instructions Recorded Confirmed Type atorvastatin 40 mg tablet (Lipitor) 40 mg PO QAM 01/05/19 08/27/22 History cholecalciferol (vitamin D3) 50 2,000 unit PO QAM 01/05/19 08/27/22 History mcg (2,000 unit) tablet (Vitamin D3) multivitamin 1 tab PO QAM 01/05/19 08/27/22 History ferrous sulfate 325 mg (65 mg 325 mg PO Q OTHER DAY 02/11/20 08/27/22 History iron) tablet (iron) apple cider vinegar 300 mg tablet 600 mg PO QAM 01/03/22 08/27/22 History aspirin 81 mg tablet,delayed 81 mg PO DAILY 08/27/22 08/27/22 History release (Chandana Low Dose Aspirin) duloxetine 60 mg capsule,delayed 60 mg PO QAM 08/27/22 08/27/22 History release hydroxyzine HCl 25 mg tablet 25 mg PO Q6 PRN Anxiety 08/27/22 08/27/22 History Past Med/Surg History Medical History (Updated 08/27/22 @ 17:48 by JESI Bean) Anxiety Asthma Well controlled Degenerative joint disease of right hip Encounter for pre-operative examination GERD (gastroesophageal reflux disease) Diet controlled History of COVID-19 Dx 07/2021 Symptoms at time: fatigue, weakness, bronchitis > resolved HLD (hyperlipidemia) Major depressive disorder, recurrent severe without psychotic features Obesity Sleep apnea No device (Previously used CPAP, did not tolerate device) SOB (shortness of breath) Surgical History History of bilateral tubal ligation History of cataract surgery right/left History of colonoscopy S/P arthroscopic knee surgery left S/P laparotomy after ectopic [place] teeth extracted Social History Smoking Status: Former smoker Second Hand Exposure: No; Hx Alcohol Use: No Hx Substance Use: No Preferred Language: German Communication Ability: Effective Caretaker Resort Required: No Beliefs That Will Affect Care: None Current Living Situation: Family Current Living Situation Comment: lives daughter and son Feels Safe at Home: Yes Assistive Devices: Walker Review of Systems Review of Systems: Neuro: (-) Falls, trauma, slurred speech HEENT: (-) JAMIL, dizziness, dysphagia, visual or auditory changes CV: (-) CP, palpitations, swelling Resp: (+) SOB GI: (-) appetite changes, N/V/D, bowel changes : (-) urinary changes Skin: (-) rashes Psych: (-) anxiety, depression Physical Exam Physical Exam: Neuro: AAOx4, PERRLA, no aphagia, memory changes, CNII-XII grossly intact HEENT: head normocephalic, moist mucus membranes CV: S1/S2, (-) M/G/R, (-) edema, cap refill < 3 seconds. No pulses paradoxus Resp: Lungs with expiratory wheezes both anterior and posterior. On RA. Symmetrical breath sounds GI: Abdomen S/NT/ND, Ax4 bowel sounds, (-) CVA tenderness Musculoskeletal: 5/5 B/L UE strength, 5/5 B/L LE strength. No gait disturbance Skin: (-) rashes , (-) erythema. Psych: euthymic mood Results & Data Results & Data Vital Signs (Past 12 Hours) Vital Signs Temp Pulse Pulse Resp BP BP Pulse Ox 08/27/22 15:30 83 18 100 08/27/22 15:30 129/59 L 08/27/22 15:01 70 16 100 08/27/22 15:01 118/68 08/27/22 15:00 74 15 100 08/27/22 14:44 70 14 100 08/27/22 15:00 73 118/68 100 08/27/22 14:37 08/27/22 14:36 69 26 H 108/62 98 08/27/22 14:35 99 08/27/22 14:36 72 14 100 08/27/22 13:49 36.9 C 93 H 30 H 133/72 97 O2 Del Method 08/27/22 15:30 08/27/22 15:30 08/27/22 15:01 08/27/22 15:01 08/27/22 15:00 08/27/22 14:44 08/27/22 15:00 Room Air 08/27/22 14:37 Room Air 08/27/22 14:36 Room Air 08/27/22 14:35 Room Air 08/27/22 14:36 Room Air 08/27/22 13:49 Room Air Laboratory Results Short CBC 08/27/22 Range/Units 14:00 WBC 5.52 (4.8-10.8) K/ul Hgb 15.0 (12.0-16.0) g/dl Hct 45.4 (37.0-47.0) % Plt Count 294 (130-400) K/uL BMP 08/27/22 14:00 Sodium 140 Potassium 4.6 Chloride 104 Carbon Dioxide 29 BUN 13 Creatinine 0.90 Glucose 96 Calcium 10.1 Liver Function 08/27/22 Range/Units 14:00 Total Bilirubin 0.7 (0.2-1.0) mg/dl AST 21 (13-39) U/L ALT 13 (7-52) U/L Alkaline Phosphatase 118 H (34-104) U/L Albumin 4.1 (3.4-5.0) gm/dl Diagnostic Findings Chest X-Ray 08/27/22 13:51 XR chest 1V portable HISTORY: 62 years-old Female Chest pain, nonspecific COMPARISON: 07/26/2021 TECHNIQUE: AP view of the chest FINDINGS: Cardiac mediastinal and hilar silhouettes are within normal limits. There are a few ill-defined subtle opacity is noted throughout the left midlung. No pneumothorax or pleural effusion. Degenerative changes of the shoulders and spine. IMPRESSION: Subtle ill-defined left midlung opacities may be secondary to summation density versus developing airspace disease. ACT 112: Negative or not required by law. The above report was generated using voice recognition software. It may contain grammatical, syntax or spelling errors. Electronically signed by: Jayden Bailey M.D. 08/27/2022 2:23 PM Code Status & VTE Plan Code Status Full code in the event of cardiac or respiratory arrest Supervising Physician Co-Signing Physician Notes Attending addendum: The patient was seen and examined in emergency room She has been complaining of cough with shortness of breath and wheezing since last Denies any fever and or chills and does not have any productive phlegm Her condition got worse today and she is in the emergency room On examination Minimal shortness of breath at rest Hemodynamically stable Chestdecreased breath sounds both sides with wheezing all over and minimal crackles at the bases HeartS1, S2 regular Abdomenbenign Extremitiesno edema CNSalert, awake and oriented x3 Her admission labs, imaging studies and EKG reviewed She has history of asthma and coming in with an exacerbation Could be secondary to infection/bronchitis Will give steroid nebulized bronchodilator and a course of doxycycline Agree with assessment plan as outlined above by Sintia Woodward
--- NOTE | 2022-08-27 16:38 | Electrocardiogram Report ---
Test Reason : Blood Pressure : / mmHG Vent. Rate : 084 BPM Atrial Rate : 084 BPM P-R Int : 134 ms QRS Dur : 074 ms QT Int : 366 ms P-R-T Axes : 065 018 047 degrees QTc Int : 432 ms Normal sinus rhythm Normal ECG When compared with ECG of 26-JUL-2021 09:23, No significant change was found Confirmed by Souleymane Rai ([id number]) on 08/27/2022 4:38:23 PM Referred By: REFERRED SELF Confirmed By:Souleymane Rai
--- NOTE | 2022-08-27 17:54 | CT Scan Report ---
CT ANGIOGRAM OF THE CHEST CLINICAL HISTORY: Atypical chest pain. COMPARISON STUDY: Chest x-ray dated 08/27/2022. Chest CT dated 07/26/2021. TECHNIQUE: Following the IV administration of 109 cc of Optiray 320, CT angiogram of the chest was pe rformed from the upper abdomen to the thoracic inlet utilizing the pulmonary embolus protocol. Images are reviewed in the axial, sagittal, and coronal planes. 3-D MIPS images are created and assessed. I V contrast was administered without complication. A dose lowering technique was utilized adhering to the principles of ALARA. The examination is compromised by motion artifact. CT DOSE: 1005.28 mGy.cm FINDINGS: Thyroid: Imaged portions of the thyroid gland are normal in size and attenuation. Thoracic aorta: The thoracic aorta is normal in caliber and demonstrates bovine variant arch anatomy. No dissection is seen. Pulmonary vasculature: The pulmonary trunk is normal in caliber. There are no filling defects identif ied in main, lobar, or segmental pulmonary branches to suggest pulmonary embolus. Heart: The heart is normal in size and without pericardial effusion. Lungs and pleural spaces: Evaluation of the lung parenchyma is degraded by motion artifact. There is patchy airspace consolidation seen in the left upper lobe and lingula. Scarring/atelectasis is noted at both lung bases. No pleural effusion is identified. The trachea and central airways are clear. Mediastinum: Prominent mediastinal lymph nodes measure up to 8 mm in short axis. These are likely marisela ctive. Tessie: Clear. Axillae: There is no axillary lymphadenopathy. Upper abdomen: Partially visualized upper abdominal viscera is within normal limits. Skeletal structures: The skeletal structures are osteopenic. No lytic or blastic bony lesions are see n. Degenerative change and mild hyperkyphosis is noted in the thoracic spine. Arthritic change is see n in the shoulders. IMPRESSION: 1. There is no evidence of pulmonary embolus in the main, lobar, or segmental pulmonary arteries. 2. Patchy airspace consolidation in the left upper lobe and lingula is typical for pneumonia. Clinica l correlation will be required and radiographic follow-up to resolution is recommended. 3. No pleural effusion is identified. 4. Additional findings as above. ACT 112: Negative or not required by law. Electronically signed by: Salo Jackson M.D. 08/27/2022 5:52 PM
[2022-08-27] MEDS ORDERED: ACETAMINOPHEN 325 MG TAB PO PRN (18:31)
[2022-08-27] MEDS ORDERED: POLYETHYLENE (MIRALAX) 17 GM PACK PO PRN (18:31)
[2022-08-27] MEDS ORDERED: ONDANSETRON INJ 2 MG/ML 2 ML VIAL IV PRN (18:31)
[2022-08-27] MEDS ORDERED: MAGNESIUM HYDROXIDE SUSP 30 ML UDC PO PRN (18:31)
[2022-08-27] MEDS ORDERED: ALUMINUM/MAGNESIUM SUSP 30 ML UDC PO PRN (18:31)
[2022-08-27] MEDS ORDERED: FLUTICASONE FUROATE 200MCG 14 PUFFS/INHALER INH SCH (18:45)
[2022-08-27] MEDS ORDERED: AZITHROMYCIN 250 MG TAB PO ONE (19:11)
[2022-08-27] MEDS ORDERED: cefTRIAXone SODIUM 1,000 MG in DEXTROSE 5% AD-VAN 50 ML IV STA (19:11)
[2022-08-27] MEDS: ALBUT/IPRATROP 3MG/0.5MG NEB 3 ML VIAL NEB SCH (19:38)
[2022-08-27] MEDS ORDERED: methylPREDNISolone 125 MG/2 ML VIAL IV SCH (21:00)
[2022-08-27 22:04] LABS: Appearance Urine Clear (Clear); Bacteria Urine Automated Negative (Negative); Bilirubin Urine Negative (Negative); Blood Urine Negative (Negative); Color Urine Yellow; Glucose Urine UA Negative (Negative); Ketones Urine Trace (Negative); Leukocyte Esterase Urine Negative (Negative); Nitrite Urine Negative (Negative); Protein Urine Trace (Negative); RBC Urine Automated 0-4 /hpf (0-4); Specific Gravity Urine > 1.045 (1.000-1.030); Urobilinogen Urine Negative (Negative)
[2022-08-27] MEDS: methylPREDNISolone 60 MG in SYRINGE 0 ML IV SCH (22:20)
[2022-08-27] MEDS: FLUTICASONE FUROATE 200MCG 14 PUFFS/INHALER INH SCH (22:20)
[2022-08-27] MEDS ORDERED: PNEUMOCOCCAL POLYSACCHARIDES 25 MCG/0.5 ML VIAL/SYR IM ONE (22:47)
--- NOTE | 2022-08-28 07:28 | XRay Report ---
XR chest 1V portable HISTORY: asthma exacerbation COMPARISON: Chest 08/27/2022. FINDINGS: No pneumothorax. No pleural effusions. Faint patchy airspace opacities within the left lung are again noted. Right lung remains clear. The heart is normal in size. IMPRESSION: No change in the faint patchy airspace opacities within the left lung likely representing a pneumonia . ACT 112: Negative or not required by law. Electronically signed by: Tho Horton M.D. 08/28/2022 7:27 AM
[2022-08-28 07:30] LABS: Hemoglobin 13.3 g/dl (12.0-16.0); Mean Corpuscular Hemoglobin 28.5 pg (25.0-34.0); Mean Corpuscular Hgb Conc 33.3 g/dL (32.0-36.0); Mean Corpuscular Volume 85.7 fL (80.0-100.0); Mean Platelet Volume 9.9 fL (9.4-12.4); Platelet Count 274 K/uL (130-400); RDW Coefficient of Variation 12.7 % (11.5-14.5); RDW Standard Deviation 39.1 fL (36.4-46.3); Red Blood Count 4.67 M/uL (4.20-5.40); White Blood Count 6.86 K/ul (4.8-10.8)
[2022-08-28] MEDS: methylPREDNISolone 60 MG in SYRINGE 0 ML IV SCH (07:53)
[2022-08-28] MEDS: ENOXAPARIN INJ 40 MG/0.4 ML SYR SQ SCH (07:54)
[2022-08-28] MEDS: FLUTICASONE FUROATE 200MCG 14 PUFFS/INHALER INH SCH (07:54)
[2022-08-28 08:00] LABS: BUN Creatinine Ratio 18.2 (10-20); Calcium 9.6 mg/dl (8.6-10.3); Creatinine Clr Calc Pharmacy 82.6 ml/min; Est GFR (African American) 95.2 ml/min; Est GFR (Non-African American) 82.2 ml/min; Magnesium 2.1 mg/dl (1.7-2.4); Potassium 4.3 mmol/L (3.5-5.1)
[2022-08-28] MEDS: ALBUT/IPRATROP 3MG/0.5MG NEB 3 ML VIAL NEB SCH ×6 (08:05→19:08)
[2022-08-28] MEDS: AZITHROMYCIN 250 MG TAB PO SCH (09:40)
--- NOTE | 2022-08-28 13:08 | Hospitalist Progress Note ---
Date of Service August 28, 2022 Assessment & Plan (1) Asthma exacerbation: (2) SOB (shortness of breath): (3) Depression: (4) GERD (gastroesophageal reflux disease): (5) HLD (hyperlipidemia): Plan 62 y/o with acute asthma exacerbation. Responding well to nebulizer tx and IV steroids. Additional PMH includes HLD, depression, MDD and history of DERIK (no cpap). Asthma Exacerbation: SOB: Pneumonia Presented with shortness of breath and dry cough. CXR: Faint patchy airway opacities within the left lung No leukocytosis D-dimer incidental finding 870; CTA did not show any PE. Pro-David negative Plan; Continue [id number] DuoNebs. Continue on azithromycin day 2; complete 3-day course. IV steroids changed to p.o.; will need 5-day course. Will need outpatient pulmonology referral at discharge. Inhaled corticosteroid started. Depression: Takes Cymbalta; continue HLD: -Takes Atorvastatin; continue -Lipid panel: 08/15/22: TG 247, HDL 33, LDL 112 Disposition: PCP: Dr. Rebolledo Code Status: Full Code VTE Prophylaxis: Lovenox SQ Admission and Anticipated Discharge Date Admission Date: August 27, 2022 Subjective Patient seen and examined at bedside. She reports feeling slightly better with the breathing treatment. She endorses shortness of breath on exertion. No fever or chills. Review of Systems Review of Systems: All systems reviewed & are unremarkable except as noted in Subjective Physical Exam Physical Exam: Neuro: AAOx4, PERRLA, no aphagia, memory changes, CNII-XII grossly intact HEENT: head normocephalic, moist mucus membranes CV: S1/S2, (-) M/G/R, (-) edema, cap refill < 3 seconds. No pulses paradoxus Resp: Bilateral wheezing present; GI: Abdomen S/NT/ND, Ax4 bowel sounds, (-) CVA tenderness Musculoskeletal: 5/5 B/L UE strength, 5/5 B/L LE strength. No gait disturbance Skin: (-) rashes , (-) erythema. Psych: euthymic mood Results & Data Results & Data Vital Signs (Past 12 Hours) Vital Signs Temp Pulse Resp BP Pulse Ox O2 Del Method 08/28/22 11:44 36.6 C 101 H 18 116/65 96 Room Air 08/28/22 11:01 84 17 98 Room Air 08/28/22 08:00 Room Air 08/28/22 08:00 36.7 C 77 18 116/66 94 Room Air 08/28/22 08:07 62 16 94 Room Air 08/28/22 03:00 36.6 C 84 18 109/70 95 Room Air Laboratory Results Laboratory Results WBC 6.86 K/ul (4.8-10.8) 08/28/22 06:59 RBC 4.67 M/uL (4.20-5.40) 08/28/22 06:59 Hgb 13.3 g/dl (12.0-16.0) 08/28/22 06:59 Hct 40.0 % (37.0-47.0) 08/28/22 06:59 MCV 85.7 fL (80.0-100.0) 08/28/22 06:59 MCH 28.5 pg (25.0-34.0) 08/28/22 06:59 MCHC 33.3 g/dL (32.0-36.0) 08/28/22 06:59 RDW Std Deviation 39.1 fL (36.4-46.3) 08/28/22 06:59 RDW Coeff of Suzie 12.7 % (11.5-14.5) 08/28/22 06:59 Plt Count 274 K/uL (130-400) 08/28/22 06:59 MPV 9.9 fL (9.4-12.4) 08/28/22 06:59 Immature Gran % (Auto) 0.2 % 08/27/22 14:00 Neut % (Auto) 41.8 % 08/27/22 14:00 Lymph % (Auto) 44.2 % 08/27/22 14:00 Bee % (Auto) 8.2 % 08/27/22 14:00 Eos % (Auto) 4.9 % 08/27/22 14:00 Baso % (Auto) 0.7 % 08/27/22 14:00 Neut # (Auto) 2.31 K/uL (1.40-6.50) 08/27/22 14:00 Lymph # (Auto) 2.44 K/uL (1.2-3.4) 08/27/22 14:00 Bee # (Auto) 0.45 K/uL (0.11-0.59) 08/27/22 14:00 Eos # (Auto) 0.27 K/uL (0-0.50) 08/27/22 14:00 Baso # (Auto) 0.04 K/uL (0-0.2) 08/27/22 14:00 Immature Gran # (Auto) 0.01 K/uL (0.01-0.20) 08/27/22 14:00 PT 10.5 Seconds (9.0-12.0) 08/27/22 14:00 INR 1.0 (0.9-1.1) 08/27/22 14:00 APTT 25.7 Seconds (21.0-31.0) 08/27/22 14:00 PTT Ratio 0.9 08/27/22 14:00 D-Dimer 870 ug/L FEU (0-500) H* 08/27/22 14:00 VBG pH 7.39 (7.36-7.41) 08/27/22 14:27 VBG pCO2 53 mmHg (38-50) H 08/27/22 14:27 VBG pO2 29 mmHg 08/27/22 14:27 VBG HCO3 32 mmol/L 08/27/22 14:27 VBG O2 Saturation < 60.0 % 08/27/22 14:27 VBG Base Excess 5.7 mEq/L 08/27/22 14:27 Sodium 139 mmol/L (136-145) 08/28/22 06:59 Potassium 4.3 mmol/L (3.5-5.1) 08/28/22 06:59 Chloride 104 mmol/L (98-107) 08/28/22 06:59 Carbon Dioxide 26 mmol/L (21-32) 08/28/22 06:59 Anion Gap 9 (3-11) 08/28/22 06:59 BUN 14 mg/dl (6-23) 08/28/22 06:59 Creatinine 0.77 mg/dl (0.6-1.2) 08/28/22 06:59 Est Cr Clr Drug Dosing 82.6 ml/min 08/28/22 06:59 Est GFR ( Amer) 95.2 ml/min 08/28/22 06:59 Est GFR (Non-Af Amer) 82.2 ml/min 08/28/22 06:59 BUN/Creatinine Ratio 18.2 (10-20) 08/28/22 06:59 Glucose 155 mg/dl (70-99(Fasting)) H 08/28/22 06:59 Calcium 9.6 mg/dl (8.6-10.3) 08/28/22 06:59 Magnesium 2.1 mg/dl (1.7-2.4) 08/28/22 06:59 Total Bilirubin 0.7 mg/dl (0.2-1.0) 08/27/22 14:00 AST 21 U/L (13-39) 08/27/22 14:00 ALT 13 U/L (7-52) 08/27/22 14:00 Alkaline Phosphatase 118 U/L (34-104) H 08/27/22 14:00 Troponin I High Sens 3.2 pg/ml (0-14) 08/27/22 14:00 B-Natriuretic Peptide 11 pg/ml (0-100) 08/27/22 14:27 Total Protein 7.2 gm/dl (6.0-8.3) 08/27/22 14:00 Albumin 4.1 gm/dl (3.4-5.0) 08/27/22 14:00 Globulin 3.1 gm/dl (2.5-4.0) 08/27/22 14:00 Albumin/Globulin Ratio 1.3 (0.9-2) 08/27/22 14:00 Lipase 27 U/L (11-82) 08/27/22 14:00 Procalcitonin < 0.05 ng/ml (0-0.5) 08/28/22 06:59 Urine Color Yellow 08/27/22 21:50 Urine Appearance Clear (Clear) 08/27/22 21:50 Urine pH 5.0 (4.5-7.5) 08/27/22 21:50 Ur Specific [place] > 1.045 (1.000-1.030) H 08/27/22 21:50 Urine Protein Trace (Negative) H 08/27/22 21:50 Urine Glucose (UA) Negative (Negative) 08/27/22 21:50 Urine Ketones Trace (Negative) H 08/27/22 21:50 Urine Blood Negative (Negative) 08/27/22 21:50 Urine Nitrite Negative (Negative) 08/27/22 21:50 Urine Bilirubin Negative (Negative) 08/27/22 21:50 Urine Urobilinogen Negative (Negative) 08/27/22 21:50 Ur Leukocyte Esterase Negative (Negative) 08/27/22 21:50 Urine WBC (Auto) 1-5 /hpf (0-5) 08/27/22 21:50 Urine RBC (Auto) 0-4 /hpf (0-4) 08/27/22 21:50 U Hyaline Cast (Auto) 1-5 /lpf (0-5) 08/27/22 21:50 U Epithel Cells (Auto) 5-10 /lpf (0-5) H 08/27/22 21:50 Urine Bacteria (Auto) Negative (Negative) 08/27/22 21:50 SARS-CoV-2 (PCR) NEGATIVE (Negative) 08/27/22 14:00 Influenza Type A (PCR) Negative (Neg) 08/27/22 14:00 Influenza Type B (PCR) Negative (Neg) 08/27/22 14:00 RSV (RT-PCR) Negative (Neg) 08/27/22 14:00 Impressions Chest CTA 08/27/22 16:11 CT ANGIOGRAM OF THE CHEST CLINICAL HISTORY: Atypical chest pain. COMPARISON STUDY: Chest x-ray dated 08/27/2022. Chest CT dated 07/26/2021. TECHNIQUE: Following the IV administration of 109 cc of Optiray 320, CT angiogram of the chest was performed from the upper abdomen to the thoracic inlet utilizing the pulmonary embolus protocol. Images are reviewed in the axial, sagittal, and coronal planes. 3-D MIPS images are created and assessed. IV contrast was administered without complication. A dose lowering technique was utilized adhering to the principles of ALARA. The examination is compromised by motion artifact. CT DOSE: 1005.28 mGy.cm FINDINGS: Thyroid: Imaged portions of the thyroid gland are normal in size and attenuation. Thoracic aorta: The thoracic aorta is normal in caliber and demonstrates bovine variant arch anatomy. No dissection is seen. Pulmonary vasculature: The pulmonary trunk is normal in caliber. There are no filling defects identified in main, lobar, or segmental pulmonary branches to suggest pulmonary embolus. Heart: The heart is normal in size and without pericardial effusion. Lungs and pleural spaces: Evaluation of the lung parenchyma is degraded by motion artifact. There is patchy airspace consolidation seen in the left upper lobe and lingula. Scarring/atelectasis is noted at both lung bases. No pleural effusion is identified. The trachea and central airways are clear. Mediastinum: Prominent mediastinal lymph nodes measure up to 8 mm in short axis. These are likely reactive. Tessie: Clear. Axillae: There is no axillary lymphadenopathy. Upper abdomen: Partially visualized upper abdominal viscera is within normal limits. Skeletal structures: The skeletal structures are osteopenic. No lytic or blastic bony lesions are seen. Degenerative change and mild hyperkyphosis is noted in the thoracic spine. Arthritic change is seen in the shoulders. IMPRESSION: 1. There is no evidence of pulmonary embolus in the main, lobar, or segmental pulmonary arteries. 2. Patchy airspace consolidation in the left upper lobe and lingula is typical for pneumonia. Clinical correlation will be required and radiographic follow-up to resolution is recommended. 3. No pleural effusion is identified. 4. Additional findings as above. ACT 112: Negative or not required by law. Electronically signed by: Salo Jackson M.D. 08/27/2022 5:52 PM Chest X-Ray 08/28/22 08:00 XR chest 1V portable HISTORY: asthma exacerbation COMPARISON: Chest 08/27/2022. FINDINGS: No pneumothorax. No pleural effusions. Faint patchy airspace opacities within the left lung are again noted. Right lung remains clear. The heart is normal in size. IMPRESSION: No change in the faint patchy airspace opacities within the left lung likely representing a pneumonia. ACT 112: Negative or not required by law. Electronically signed by: Tho Horton M.D. 08/28/2022 7:27 AM
[2022-08-29] MEDS: ALBUT/IPRATROP 3MG/0.5MG NEB 3 ML VIAL NEB SCH (07:06)
[2022-08-29] MEDS: AZITHROMYCIN 250 MG TAB PO SCH (07:57)
[2022-08-29] MEDS: ENOXAPARIN INJ 40 MG/0.4 ML SYR SQ SCH (07:58)
[2022-08-29] MEDS: FLUTICASONE FUROATE 200MCG 14 PUFFS/INHALER INH SCH (07:58)
[2022-08-29] MEDS ORDERED: predniSONE 20 MG TAB PO SCH (09:00)
--- NOTE | 2022-08-29 12:54 | Discharge Summary ---
Date of Service August 29, 2022 Admission HPI Per Admitting Provider Ms. Dumont is a 62 year old female that presented to the ED today with SOB. She has a history of asthma exacerbation. She states that her symptoms started on where she felt that she had dyspnea on exertion and became more wheezy. She lives at home with her adult son who has been ill with a respiratory virus but she denies any cough or congestion. In the ED she received an hour long nebulizer treatment along with IV steroid administration. D-Dimer was ordered in ED and elevated at 870, suspect related to exacerbation; pending Chest CTA review. VBG results pH 7.39, CO2 53, HCO3 32; compensated respiratory alkalosis. Otherwise, lab work up unremarkable. Patient has a PMH that includes: asthma, depression, HLD, MDD, DERIK (not on CPAP), and GERD. While patient has medical history of asthma, does not take any routine medications. On examination, patient is AAOx3, able to move air without difficulty, some noted anterior and posterior expiratory wheezes, no cough, no pulsus paradoxus, symmetrical breathing and breath sounds, no accessory muscle use. Patient states that she has seen pulmonary as an outpatient years ago, Dr. Caldera?. She reports being hospitalized about a year ago but did not offer that this was related to asthma. She does not take any routine medications for asthma. I did observe her ambulate without difficulty to the bathroom. Patient denies headache, dizziness, visual changes, auditory changes, chest tightness, palpitations, N/V/D, recent falls or trauma. Pt denies tobacco, alcohol or recreational drug use. Patient will be admitted for further evaluation and management. Please see A/P for further details. Admission Exam Per Admitting Provider Neuro: AAOx4, PERRLA, no aphagia, memory changes, CNII-XII grossly intact HEENT: head normocephalic, moist mucus membranes CV: S1/S2, (-) M/G/R, (-) edema, cap refill < 3 seconds. No pulses paradoxus Resp: Lungs with expiratory wheezes both anterior and posterior. On RA. Symmetrical breath sounds GI: Abdomen S/NT/ND, Ax4 bowel sounds, (-) CVA tenderness Musculoskeletal: 5/5 B/L UE strength, 5/5 B/L LE strength. No gait disturbance Skin: (-) rashes , (-) erythema. Psych: euthymic mood Principal Diagnosis Asthma exacerbation Pneumonia Discharge Exam Constitutional: WD/WN, vitals as above, NAD, sitting up in bed, pleasant, conversing easily Respiratory: Minimal wheeze heard. Cardiovascular: RRR, no murmur, no edema Vessels: no JVD or carotid bruit Chest: normal inspection of chest Abdomen: normal bowel sounds, soft, nontender, no hepatosplenomegaly Musculoskeletal: no cyanosis or clubbing, extremities motor strength 5/5 Skin: no rashes, warm and dry normal turgor Neurologic: PERRL, EOMI, accommodation nl, no face palsy, no dysarthria CN's II- XI intact bilaterally and moves all extremities Psychiatric: A+Ox3, euthymic affect Lymphatic: no cervical or axillary lymphadenopathy : deferred Discharge Data Allergies Allergy/AdvReac Type Severity Reaction Status Date / Time isopropyl alcohol Allergy Unknown Rash, Verified 01/10/22 11:37 hives (Please use iodine per Dr. Joaquin Jolly) Penicillins Allergy Unknown Hives Verified 01/04/22 08:47 dichloralphenazone AdvReac Mild GI bleed Verified 01/04/22 08:47 isometheptene AdvReac Mild GI Bleed Verified 01/04/22 08:47 Sulfa (Sulfonamide AdvReac Mild GI upset Verified 01/04/22 08:47 Antibiotics) aspirin AdvReac Unknown GI upset Verified 01/04/22 08:47 ibuprofen AdvReac Unknown Vaginal Verified 01/04/22 08:47 spotting, GI bleed Consultations 08/27/22 15:48 ED Decision to Admit Stat Ordered Studies 08/27/22 16:11 CT angio chest PE protocol Stat Hospital Course (1) Asthma exacerbation: (2) SOB (shortness of breath): (3) Depression: (4) GERD (gastroesophageal reflux disease): (5) HLD (hyperlipidemia): Plan Patient is a 62-year-old female with past medical history of asthma, hyperlipidemia, depression presents to the hospital with cough and shortness of breath. Chest x-ray showed faint patchy airway opacities within the left lung. CTA chest was done which did not show any PE. Patient was admitted to telemetry floor for treatment of pneumonia and asthma exacerbation. She was treated with IV steroids, antibiotics and [id number] DuoNebs. Over the course of the hospitalization, patient showed signs of improvement with decrease in wheeze and shortness of breath. She completed a 3-day course of azithromycin. 3 more days of prednisone was prescribed to the patient. She was also prescribed inhaled corticosteroid. Patient will follow-up with her primary care doctor and obtain pulmonology referral for long-term management of asthma. Total Time Total Time Spent Total Time Spent (In Minutes): 35 Total Time Includes: Examination of the Patient, Discharge Planning, Medication Reconciliation, Communication With Other Providers and Other Discharge Plan Discharge Items Patient Disposition: Home - Self-Care Reason For Visit: ASTHMA EXACERBATION Discharge Diagnosis: Pneumonia Asthma exacerbation Activity: Resume your previous activity Weightbearing: Full weightbearing Non-emergency contact: Primary Care Provider Call non-emergency contact if: you have any medication questions and your symptoms worsen Follow-up/Referrals: Ashkan Rebolledo MD [Primary Care Provider] - (Date & Time 09/02/2022 11:00 AM Provider Ashkan Rebolledo III, MD Department [facility] ) Diet: Regular Addtl Attending Provider Instructions: You were admitted to the hospital with pneumonia and asthma exacerbation. You completed 3-day course of azithromycin during the hospitalization. You are prescribed following medications: 1) take prednisolone 40 mg (2 tablets of 20 mg) once a day for 3 more days 2) you are also prescribed an inhaler which contains corticosteroid. Please use it once a day. Please continue to use the rescue inhaler(albuterol) on as- needed basis. You have a primary care follow-up set up for you for next week. Please discuss with your primary care doctor regarding referral to pulmonology(lung doctor). Pending Studies at Discharge: No Stand-Alone Forms: My [facility] [place], Smoking Cessation Medications and DC Order Prescriptions: New prednisone 20 mg Tablet 40 mg PO DAILY 3 Days Qty: 6 0RF fluticasone propion-salmeterol [Advair Diskus] 100-50 mcg/dose blister with device 1 inh inhalation DAILY Qty: 60 0RF Continued multivitamin Tablet 1 tab PO QAM atorvastatin [Lipitor] 40 mg tablet 40 mg PO QAM cholecalciferol (vitamin D3) [Vitamin D3] 2,000 unit Tablet 2,000 unit PO QAM ferrous sulfate [iron] 325 mg (65 mg iron) Tablet 325 mg PO Q OTHER DAY Rx Instructions: every other day apple cider vinegar 300 mg Tablet 600 mg PO QAM hydroxyzine HCl 25 mg tablet 25 mg PO Q6 PRN (Reason: Anxiety) duloxetine 60 mg capsule,delayed release(DR/EC) 60 mg PO QAM aspirin [Chandana Low Dose Aspirin] 81 mg tablet,delayed release (DR/EC) 81 mg PO DAILY Rx Instructions: Take to prevent blood clots. Discharge Orders: Discharge Order (Routine); Ordered 08/29/22 Ordered By: Nasir Garcia/Other Patient Handouts: Prednisone Oral Tablet, Fluticasone Metered Dose Nasal ... Admission Data Admit Date/Time: 08/27/22 16:21 Attending Provider: Nasir Bautista Admit Provider: Adam Woodward Primary Care Provider: Ashkan Rebolledo Other Providers: Adam Woodward Other Interventions: Discharge Summary Assessment (RN) Last Done: 08/29/22 10:04
== END 2022-08-29 11:30 | disposition home or self-care (01) | DRG 202 ==
LOC: ED 13:40 → EDINP 16:21 → SUATTDRO 16:21 → EDINP 18:32 → 2N 19:59